=== PATIENT | female | born 1935 | race Caucasian/White ===

== ENCOUNTER → 2016-11-04 | Outpatient (CLI) | payer MEDICARE, OTHER ==
[~2016-11-04] MED LIST: ANTIVERT 12.512.5 MG PO; ASPIRIN 81M81 MG/TA2 PO; CALCIUM 600MG+D1 TAB PO; COLACE 100100 MG/CAP PO; DEBROX OT; FOSAMAX 10M10 MG/TAB PO; FOSAMAX 70MG TA70 MG PO; GLUCOSAMINE SU500 M2 PO; MULTI VITAMINS1 TAB PO; NATURAL POTASS595 MG PO; NATURE'S BLE1000 MCG PO; NITROSTAT0.3 MG SL; NORCO 325 MG-51 TAB PO; PRILOTC PO; SEPTRA DS 8001 TAB PO; SYNTHROID0.075 MG/T PO
== END ==
LOC: COL.VAS 12:15
DX: I08.0 Rheumatic disorders of both mitral and aortic valves (principal); I28.8 Other diseases of pulmonary vessels

== ENCOUNTER 2016-11-10 02:39 | Observation (INO) | payer MEDICARE, OTHER ==
[~2016-11-10] VITALS: Ht 157.5 cm; Wt 57.0 kg
[~2016-11-10 02:39] MED LIST changes: -ANTIVERT 12.512.5 MG PO; -DEBROX OT; -FOSAMAX 70MG TA70 MG PO; -NITROSTAT0.3 MG SL
[2016-11-10 03:26] LABS: BASO % 0.5 % (0.0-2.0); EOS # 0.1 (0.0-0.7); EOS % 1.7 % (0-4.0); GRAN # 4.3 (1.4-6.5); GRAN % 71.2 % (42.2-75.2); HEMOGLOBIN 12.2 g/dl (12.5-16.0); LYMPH % 17.4 % (20.0-51.0); MEAN CELL VOLUME 94 fl (80.0-100.0); MEAN CORPUSCULAR HEMOGLOBIN 31 pg (27.0-31.0); MEAN CORPUSCULAR HGB CONC 33 g/dl (33.0-37.0); MEAN PLATELET VOLUME 8.7 fl (7.4-10.4); MONO # 0.5 (0.1-0.6); MONO % 8.4 % (1.7-9.3); PLATELET COUNT 255 K/mm3 (130-400); RED BLOOD COUNT 3.88 M/mm3 (4.10-5.30); REDCELL DISTRIBUTION WIDTH-CV 12.8 % (11.5-14.5)
[2016-11-10 03:27] LABS: HEMATOCRIT 36.6 % (37.0-47.0)
[2016-11-10 03:36] LABS: ADJUSTED CALCIUM 8.8 mg/dL (8.4-10.2); ALANINE AMINOTRANSFERASE 27 U/L (9-52); ALBUMIN 4.2 gm/dL (3.5-5.0); ALKALINE PHOSPHATASE 60 U/L (50-136); ANION GAP 11 mmol/L (7-16); BILIRUBIN,TOTAL 0.7 mg/dL (0.0-1.0); BLOOD UREA NITROGEN 20 mg/dL (7-17); CARBON DIOXIDE 23 mmol/L (22-30); CHLORIDE 101 mmol/L (98-107); CREATININE, serum 0.75 mg/dL (0.52-1.25); GLUCOSE 109 mg/dL (74-106); POTASSIUM 4.1 mmol/L (3.4-5.0); SODIUM 134 mmol/L (137-145); TOTAL PROTEIN 7.5 gm/dL (6.4-8.2)
[2016-11-10] MEDS ORDERED: FOSAMAX 70MG TA70 MG PO (03:36)
[2016-11-10] MEDS ORDERED: NITROSTAT0.3 MG SL (03:37)
[2016-11-10 03:52] LABS: TROPONIN-I < 0.012 ng/mL (0.000-0.034)
[2016-11-10 06:25] VITALS: BP 141/77; PULSE 75; TEMP 97.8
[2016-11-10 08:32] VITALS: BP 141/77; PULSE 75; TEMP 97.8
[2016-11-10 10:50] VITALS: BP 115/60; PULSE 78; TEMP 98.1
[2016-11-10 15:07] VITALS: BP 127/71; PULSE 71; TEMP 98
[2016-11-10 20:52] VITALS: BP 106/62; PULSE 74; TEMP 98
[2016-11-11 00:42] VITALS: BP 115/58; PULSE 70; TEMP 97.8
[2016-11-11 05:00] VITALS: BP 122/66; PULSE 72; TEMP 98
[2016-11-11 07:40] VITALS: BP 107/56; PULSE 86; TEMP 98.6
[2016-11-11] MEDS ORDERED: DEBROX OT (09:04)
[2016-11-11] MEDS ORDERED: ANTIVERT 12.512.5 MG PO (09:23)
[2016-11-11 11:05] VITALS: BP 130/84; PULSE 80; TEMP 98.1
== END 2016-11-11 14:59 | disposition home or self-care (01) ==
LOC: COL.ER 02:39 → MEDICAL 05:51
PROVIDERS: Emergency Medicine
DX: H81.399 Other peripheral vertigo, unspecified ear (principal); I35.8 Other nonrheumatic aortic valve disorders; H61.21 Impacted cerumen, right ear; M81.0 Age-related osteoporosis without current pathological fracture; K22.4 Dyskinesia of esophagus; E03.9 Hypothyroidism, unspecified; I35.1 Nonrheumatic aortic (valve) insufficiency; Z90.721 Acquired absence of ovaries, unilateral; R42 Dizziness and giddiness
CPT/HCPCS: A9585; G0378; G8978-GP; G8979-GP; G8987-GO; G8988-GO; J1650; J2550; J7030

== ENCOUNTER → 2019-06-17 | Outpatient (CLI) | payer MEDICARE, OTHER ==
[~2019-06-17] MED LIST changes: +ANTIVERT 12.512.5 MG PO; +DEBROX OT; +FOSAMAX 70MG TA70 MG PO; +NITROSTAT0.3 MG SL
== END ==
LOC: COL.VAS 09:32
DX: I08.3 Combined rheumatic disorders of mitral, aortic and tricuspid valves (principal)

== ENCOUNTER 2019-07-11 16:52 | Inpatient (IN) | payer MEDICARE, OTHER ==
[2019-07-11] VITALS (111 sets, daily range): O2SAT 49–100
[~2019-07-11] VITALS: Ht 157.5 cm; Wt 67.6 kg
[2019-07-11 18:03] LABS: MEAN CELL VOLUME 87 fl (80.0-100.0); MEAN CORPUSCULAR HGB CONC 32 g/dl (33.0-37.0); MEAN PLATELET VOLUME 8.6 fl (7.4-10.4); PLATELET COUNT 422 K/mm3 (130-400); RED BLOOD COUNT 2.96 M/mm3 (4.10-5.30); REDCELL DISTRIBUTION WIDTH-CV 16.1 % (11.5-14.5)
[2019-07-11 18:06] LABS: HEMATOCRIT 25.7 % (37.0-47.0); HEMOGLOBIN 8.2 g/dl (12.5-16.0); MEAN CORPUSCULAR HEMOGLOBIN 28 pg (27.0-31.0)
[2019-07-11 18:08] LABS: PROTHROMBIN TIME 11.4 SECONDS (9.7-12.8)
[2019-07-11 18:15] LABS: ALANINE AMINOTRANSFERASE 41 U/L (9-52); ALBUMIN 2.4 gm/dL (3.5-5.0); ALKALINE PHOSPHATASE 111 U/L (50-136); ANION GAP 4 mmol/L (7-16); AST,SGOT 42 U/L (15-37); BILIRUBIN,TOTAL 0.3 mg/dL (0.0-1.0); BLOOD UREA NITROGEN 27 mg/dL (7-17); C-REACTIVE PROTEIN 2.5 mg/dL (0.0-0.9); CALCIUM 7.4 mg/dL (8.4-10.2); CARBON DIOXIDE 24 mmol/L (22-30); CHLORIDE 101 mmol/L (98-107); CREATININE, serum 0.67 (0.52-1.25); GLUCOSE 77 mg/dL (74-106); LIPASE 47 U/L (23-300); POTASSIUM 3.9 mmol/L (3.4-5.0); SODIUM 129 mmol/L (137-145); TOTAL PROTEIN 5.2 gm/dL (6.4-8.2)
[2019-07-11 18:25] LABS: TROPONIN-I < 0.012 ng/mL (0.000-0.035)
[2019-07-11 18:28] LABS: BAND 2 % (0-10); LYMPHOCYTE 4 % (20.0-51.0); METAMYELOCYTE 1 % (0-0); MYELOCYTE 1 % (0-0); NEUTROPHILS 88 % (42.0-75.2); PLATELET ESTIMATE INCREASED (NORMAL)
[2019-07-11 18:29] LABS: ANISOCYTOSIS 2+; HYPOCHROMIA 1+; POIKILOCYTOSIS 1+
[2019-07-11 18:30] LABS: TARGET CELLS 1+
[2019-07-11] MEDS ORDERED: CALCIUM CARBON650 M2 PO (18:53)
[2019-07-11 19:15] LABS: COLLECTION METHOD CLEAN CATCH
[2019-07-11 19:23] LABS: MUCOUS Present /lpf; PH 6 (5-8); SQUAMOUS EPITHELIAL 0-2 /hpf; URINE APPEARANCE Clear; URINE BACTERIA Rare /hpf; URINE BILIRUBIN Negative (NEGATIVE); URINE BLOOD Negative (NEGATIVE); URINE COLOR Yellow; URINE GLUCOSE Negative (NEGATIVE); URINE KETONE Negative (NEGATIVE); URINE LEUKOCYTE ESTERASE Negative (NEGATIVE); URINE NITRATE Negative (NEGATIVE); URINE PROTEIN(semi-quant) Negative (NEGATIVE); URINE RBC 0-2 /hpf; URINE UROBILINOGEN Negative (NEGATIVE)
--- NOTE | 2019-07-11 21:40 | NUR ---
PT arrived on unit accompanied by 2 SIEBEL ARCHITECT's who transferred the PT bed-to-bed. Then attached to cardiac montior where PT was noted to be hypotensive, provider notified. PT denies pain, only states that she is cold, blankets provided. [facility]
[2019-07-11] MEDS ORDERED: QUESTRAN4 GM/9 GM PO (21:59)
[2019-07-12] VITALS (1014 sets, daily range): BP systolic 70–109; BP diastolic 40–66; PULSE 69–87; TEMP 96.6–98.8; O2SAT 36–100
--- NOTE | 2019-07-12 | NUR ---
From [id number], central line was placed per provider order by Dr. Hartley. PT tolerated procedure well. CRM monitor viewed throughout the procedure with no changes. During the procedure, it was noted that the brown port was not getting blood return but flushed easily. Chest XRay ordered to verify placement, after this occured Dr. Hartley returned to the room to pull the central line catheter back 6cm as the distal tubing was in the right atrium. After doing so, the brown port was able to achieve blood return. The line was redressed using sterile procedure. After doing so, Dr. Hartley stated that the central line can be used.
[2019-07-12 01:35] LABS: TROPONIN-I 0.037 ng/mL (0.000-0.035)
[2019-07-12 05:15] LABS: BASO # 0.1 (0.0-0.2); BASO % 0.2 % (0.0-2.0); EOS % 0.1 % (0-4.0); GRAN # 24.2 (1.4-6.5); GRAN % 87.2 % (42.2-75.2); LYMPH # 0.7 (1.2-3.4); LYMPH % 2.6 % (20.0-51.0); MEAN CELL VOLUME 86 fl (80.0-100.0); MEAN CORPUSCULAR HGB CONC 32 g/dl (33.0-37.0); MEAN PLATELET VOLUME 8.7 fl (7.4-10.4); MONO # 2.4 (0.1-0.6); MONO % 8.6 % (1.7-9.3); RED BLOOD COUNT 3.12 M/mm3 (4.10-5.30); REDCELL DISTRIBUTION WIDTH-CV 16.2 % (11.5-14.5)
[2019-07-12 05:24] LABS: HEMATOCRIT 26.9 % (37.0-47.0); HEMOGLOBIN 8.6 g/dl (12.5-16.0); MEAN CORPUSCULAR HEMOGLOBIN 28 pg (27.0-31.0); PLATELET COUNT 556 K/mm3 (130-400)
[2019-07-12 05:25] LABS: INR 1.1 (0.8-3.0); PROTHROMBIN TIME 12.3 SECONDS (9.7-12.8)
[2019-07-12 05:26] LABS: ALBUMIN 1.9 gm/dL (3.5-5.0); BILIRUBIN,TOTAL 0.3 mg/dL (0.0-1.0); CALCIUM 6.2 mg/dL (8.4-10.2); CREATININE, serum 0.47 (0.52-1.25); POTASSIUM 3.4 mmol/L (3.4-5.0); TOTAL PROTEIN 4.4 gm/dL (6.4-8.2)
--- NOTE | 2019-07-12 07:20 | NUR ---
Bedside report recieved from ELAINE Hunter at this time. Care assumed.
--- NOTE | 2019-07-12 09:49 | NUR ---
Dr. Shannon rounds at this time. Orders as entered CPOE.
--- NOTE | 2019-07-12 10:50 | NUR ---
Dr. Hartley rounds at this time. Orders as entered CPOE.
[2019-07-12 11:05] LABS: ARTERIAL BLD GAS O2 SATURATION 94.2 % (92-100); ARTERIAL BLD GAS TCO2 CT 16.6; ARTERIAL BLOOD GAS BASE EXCESS -9.1 (-2-2); ARTERIAL BLOOD GAS HCO3 15.7 meq/L (22-26); ARTERIAL BLOOD GAS PCO2 30.1 mmHg (35-45); ARTERIAL BLOOD GAS PO2 76.2 mmHg (80-100); ARTERIAL BLOOD GAS pH 7.34 (7.35-7.45)
--- NOTE | 2019-07-12 13:35 | NUR ---
Vancomycin Initial Dosing Pharmacy Note Ordering provider: Rudi Menjivar MD Indication/duration: sepsis/colitis/elevated WBC (27.7<-18.1) LABS: SCr 0.47, CrCl~35, GFR 126 Recommendation: Will start Vancomycin 1 gm IV q24h. Pharmacy will continue to monitor and check a Vancomycin trough on 07/15/19. Maintenance dose: 1 gram every 24 hours Trough goal: 15-20 ug/mL
--- NOTE | 2019-07-12 14:39 | NUR ---
CAR SUPERVISOR student met with the patient to complete initial intake. The patient lives alone in [place]. The patient has a cane and a walker. The patient's PCP is Dr. Deras and receives medications from [facility] with no difficulites. The patient does not have advanced directives in the EMR. The patient's daughter is to bring the DPOA-HC for the patient. PT/OT have been ordered for the patient. director of medical staff services will continue to follow to ensure a safe discharge.
--- NOTE | 2019-07-12 19:25 | NUR ---
RECEIVED REPORT FROM ELAINE HENRIQUEZ. PT SITTING UP IN BED TALKING TO FAMILY AT BEDSIDE. SEE GTT TITRATIONS. VSS. CALL LIGHT WITHIN REACH. FC PATENT AND DRAINING TO GRAVITY.
--- NOTE | 2019-07-12 19:36 | NUR ---
Bedside report provided to ELAINE Stewart.
[2019-07-13] VITALS (719 sets, daily range): BP systolic 83–105; BP diastolic 46–69; PULSE 74–100; TEMP 97.5–98.2; O2SAT 81–100
--- NOTE | 2019-07-13 | NUR ---
DISCUSSED WITH SCOTTY POOL AND LAB ABOUT GASTO PANEL RESULTS. SCOTTY POOL STATES NO CHANGES FOR POC AT THIS TIME. PT NOT CONTINUOUSLY GAVING LOOSE STOOLS. ONLY ONE VERY SMALL BM SINCE ADMIT.
[2019-07-13 04:51] LABS: MEAN CELL VOLUME 86 fl (80.0-100.0); MEAN CORPUSCULAR HGB CONC 32 g/dl (33.0-37.0); MEAN PLATELET VOLUME 8.7 fl (7.4-10.4); PLATELET COUNT 463 K/mm3 (130-400); RED BLOOD COUNT 2.94 M/mm3 (4.10-5.30); REDCELL DISTRIBUTION WIDTH-CV 16.6 % (11.5-14.5)
[2019-07-13 04:52] LABS: HEMATOCRIT 25.4 % (37.0-47.0); MEAN CORPUSCULAR HEMOGLOBIN 27 pg (27.0-31.0)
--- NOTE | 2019-07-13 05:05 | NUR ---
NOTIFIED SCOTTY POOL OF PT'S HGB THIS AM, NO NEW ORDERS. WILL CONTINUE TO MONITOR CLOSELY FOR ANY POTENTIAL S/S RELATED TO.
[2019-07-13 05:06] LABS: ALANINE AMINOTRANSFERASE 40 U/L (9-52); ALBUMIN 1.9 gm/dL (3.5-5.0); ALKALINE PHOSPHATASE 101 U/L (50-136); ANION GAP 5 mmol/L (7-16); AST,SGOT 21 U/L (15-37); BILIRUBIN,TOTAL < 0.1 mg/dL (0.0-1.0); BLOOD UREA NITROGEN 17 mg/dL (7-17); CALCIUM 6.4 mg/dL (8.4-10.2); CARBON DIOXIDE 19 mmol/L (22-30); CHLORIDE 108 mmol/L (98-107); CREATININE, serum 0.62 (0.52-1.25); GLUCOSE 190 mg/dL (74-106); MAGNESIUM 1.6 mg/dL (1.6-2.3); POTASSIUM 4.3 mmol/L (3.4-5.0); SODIUM 131 mmol/L (137-145); TOTAL PROTEIN 4.4 gm/dL (6.4-8.2)
[2019-07-13 05:44] LABS: ANISOCYTOSIS 1+; BAND 4 % (0-10); LYMPHOCYTE 1 % (20.0-51.0); NEUTROPHILS 95 % (42.0-75.2); PLATELET ESTIMATE INCREASED (NORMAL)
[2019-07-13 05:45] LABS: PROTHROMBIN TIME 12.2 SECONDS (9.7-12.8)
--- NOTE | 2019-07-13 13:00 | NUR ---
REPORT RECEIVED FROM ELAINE BARON. PATIENT RESTING COMFORTABLY IN BED.
--- NOTE | 2019-07-13 14:17 | NUR ---
Pt and family wanted to discuss code status and pt voiced "I want to do everything to keep me alive." Family was in agreement with pt wishes. Informed Analisa HERNY.
--- NOTE | 2019-07-13 15:49 | NUR ---
The patient's daughter brought in DPOA- paperwork and was placed in the patient's chart. The DPOA-HC is the patient's daughter, Sarah Anthony . social services director will continue to follow.
--- NOTE | 2019-07-13 19:20 | NUR ---
RECEIVED REPORT FROM ELAINE HAJI. PT SITTING UP IN BED TALKING TO S/O AT BEDSIDE. VSS. CALL LIGHT WITHIN REACH. FC PATENT AND DRAINING TO GRAVITY. SEE GTT TITRATIONS. PT ON RA.
--- NOTE | 2019-07-13 19:40 | NUR ---
REPORT GIVEN TO ELAINE GRULLON. PATIENT HAS NO COMPLAINTS AT THIS TIME.
[2019-07-14] VITALS (661 sets, daily range): BP systolic 82–98; BP diastolic 42–77; PULSE 42–98; TEMP 97.2–98; O2SAT 67–100
[2019-07-14 05:22] LABS: MEAN CELL VOLUME 86 fl (80.0-100.0); MEAN CORPUSCULAR HGB CONC 31 g/dl (33.0-37.0); MEAN PLATELET VOLUME 8.8 fl (7.4-10.4); RED BLOOD COUNT 2.65 M/mm3 (4.10-5.30); REDCELL DISTRIBUTION WIDTH-CV 17.2 % (11.5-14.5)
[2019-07-14 05:29] LABS: HEMATOCRIT 22.8 % (37.0-47.0); HEMOGLOBIN 7.1 g/dl (12.5-16.0); MEAN CORPUSCULAR HEMOGLOBIN 27 pg (27.0-31.0); PLATELET COUNT 341 K/mm3 (130-400); PROTHROMBIN TIME 11.4 SECONDS (9.7-12.8)
[2019-07-14 05:30] LABS: ALBUMIN 1.9 gm/dL (3.5-5.0); BILIRUBIN,TOTAL 0.1 mg/dL (0.0-1.0); CALCIUM 6.4 mg/dL (8.4-10.2); CREATININE, serum 0.56 (0.52-1.25); POTASSIUM 4.1 mmol/L (3.4-5.0); TOTAL PROTEIN 4.1 gm/dL (6.4-8.2)
--- NOTE | 2019-07-14 05:46 | NUR ---
NOTIFIED SCOTTY POOL OF HGB 7.1, STATES TO CONTINUE TO WATCH. PT OFF LEVOPHED AT THIS TIME, VSS, NOT ACTIVE S/S OF BLEEDING NOTED.
[2019-07-14 05:59] LABS: BAND 7 % (0-10); LYMPHOCYTE 4 % (20.0-51.0); NEUTROPHILS 84 % (42.0-75.2)
--- NOTE | 2019-07-14 13:22 | NUR ---
REPORT CALLED TO ELAINE KILLIAN
--- NOTE | 2019-07-14 13:33 | NUR ---
The patient transferred to medical floor this day. technical services analyst will continue to follow.
--- NOTE | 2019-07-14 14:00 | NUR ---
Patient to room 357 by wheelchair from ICU. Patient ambulated 1xassist with PT. Nurse oriented patient to room, call light and bed. Patient verbalized an understanding. VSS. IV CDI. No further needs expressed from patient. Call light within reach. Bed alarm on
--- NOTE | 2019-07-14 16:08 | NUR ---
Transfusion started. VS monitored. VSS. IV CDI. Patient tolerating well. No further needs expressed from patient. Nurse at the bedside. Call light carolyn cabrera
--- NOTE | 2019-07-14 17:47 | NUR ---
Blood transfusing, patient tolerating well. VS being monitored. VSS. IV CDI, fluids infusing. Abdalla to dependent drainage, clear, tea colored. Denies pain and discomfort. RICHY hose BLE. SCD BLE. No further needs expressed from patient. Call light within reach. Bed alarm on.
--- NOTE | 2019-07-14 18:18 | NUR ---
Transfusion complete. Patient tolerated well. VSS. IV CDI. Abdalla removed, balloon intact. Amie care provided before and after removal. 10ml removed from balloon. Patient repositioned for comfort. No further needs expressed from patient. Call light within reach. Bed alarm on
--- NOTE | 2019-07-14 20:00 | NUR ---
Recieved report from ELAINE Vitale. Assessment complete. Alert and oriented. at bedside. Denies any pain or discomfort. Denies SOB. Having loose, liquid stools, sample was collected. Assisted pt to BSC using walker. Fluids infusing to RIJ line, intact, lines flushed, dressing CDI. Meds adminsitered. needs met. Call light within reach.
[2019-07-15] VITALS (7 sets, daily range): BP systolic 91–125; BP diastolic 53–81; PULSE 65–95; TEMP 97.4–98
--- NOTE | 2019-07-15 05:25 | NUR ---
Assisted pt to BSC with walker few times throughout the night. No complaints made. Meds administered. Needs met. Call light within reach.
--- NOTE | 2019-07-15 07:15 | NUR ---
Report given to ELAINE Hills and ELAINE Stewart.
[2019-07-15 07:28] LABS: CALCIUM 6.7 mg/dL (8.4-10.2); CREATININE, serum 0.49 (0.52-1.25); POTASSIUM 3.7 mmol/L (3.4-5.0)
[2019-07-15 08:40] LABS: MEAN CELL VOLUME 88 fl (80.0-100.0); MEAN CORPUSCULAR HGB CONC 31 g/dl (33.0-37.0); MEAN PLATELET VOLUME 9.1 fl (7.4-10.4); PLATELET COUNT 315 K/mm3 (130-400); RED BLOOD COUNT 3.33 M/mm3 (4.10-5.30); REDCELL DISTRIBUTION WIDTH-CV 17.3 % (11.5-14.5)
[2019-07-15 08:44] LABS: HEMATOCRIT 29.3 % (37.0-47.0); HEMOGLOBIN 9.2 g/dl (12.5-16.0); MEAN CORPUSCULAR HEMOGLOBIN 28 pg (27.0-31.0)
[2019-07-15 08:59] LABS: BAND 4 % (0-10); LYMPHOCYTE 4 % (20.0-51.0); NEUTROPHILS 91 % (42.0-75.2); PLATELET ESTIMATE NORMAL (NORMAL)
[2019-07-15 09:00] LABS: SCHISTOCYTES 1+
--- NOTE | 2019-07-15 09:39 | NUR ---
SHIFT REPORT RECEIVED FROM NET COORDINATOR RN. CLINTON. PT AWAKE AND RESTING IN BED, AT BEDSIDE. PT DOES NOT COMPLAIN OF PAIN OR N/V. PT SWALLOWS ORAL MEDICATIONS WITHOUT ISSUES, ONE AT A TIME. BREAKFAST TRAY SET UP. ISOLATION AND CDIFF EDUCATION PROVIDED TO PT AND FAMILY. NO OTHER CONCERNS NOTED AT THIS TIME.
--- NOTE | 2019-07-15 13:38 | NUR ---
PT is incontinent of stool in brief, calls this RN in for help. Transferred to BSC where PT outputs 300 ml of mixed void and liquid stool. Amie care provided and brief changed.
--- NOTE | 2019-07-15 14:33 | NUR ---
ANNETTE met with the patient and her partner, Kwadwo, to review discharge plan and to discuss PT's recommendation of home with partner and possible home health and OT's recommendation of post-acute rehab. The patient reports that she does not feel like she can return home at this time and would be interested in post-acute rehab. ANNETTE provided the patient with [employer] list of SNF's in the [facility] and presented and explained the Patient Choice Form. The patient chose 1) [facility] 2) [facility]. Patient Choice Form signed by the patient and she was provided a copy. ANNETTE consulted IPR Director, Niharika. ANNETTE contacted and faxed a referral to Barry at [facility]. The patient may tentatively be able to discharge this weekend. ANNETTE notified both [facility] and [facility]. SW awaiting their screens.
--- NOTE | 2019-07-15 15:33 | NUR ---
Niharika, IPR Director, reports that they are able to accept the patient. SW will need to notify Niharika when and if able to discharge this weekend. SW to continue to follow.
--- NOTE | 2019-07-15 18:36 | NUR ---
Patient has not complained of pain or discomfort all day. Patient plans to transfer to inpatient rehab tomorrow. Patient still shows significant edema in lower extremities bilaterally, but edema has improved from this morning. Patient started on IV lasix today to help with edema and central line was d/c at 1800. Patient's daughter and partner currently at bedside while patient eats dinner.
--- NOTE | 2019-07-15 18:56 | NUR ---
Recieved report from ELAINE Stewart.
--- NOTE | 2019-07-15 20:00 | NUR ---
Assessment complete. Alert and oriented. Family at bedside. Denies any pain or discomfort at this time. meds administered. Assisted pt to BSC with walker and gait belt. Still having loose, liquid stools. Dressing to rt neck intact with scant bloody drainage from removal or RIJ central line. INT to LFA intact, flushed,dressing CDI. Foam dressing changed to mid/upper back to small ulcer, no drainage, pink center. Needs attended too. Call light within reach.
[2019-07-16 02:57] VITALS: BP 109/82; PULSE 79; TEMP 97.2
--- NOTE | 2019-07-16 06:18 | NUR ---
Assisted pt x2 to BSC throughout the night. No complaints of pain or discomfort. Needs met. meds administered. Call light within reach.
[2019-07-16 06:24] LABS: MEAN CELL VOLUME 89 fl (80.0-100.0); MEAN CORPUSCULAR HGB CONC 31 g/dl (33.0-37.0); MEAN PLATELET VOLUME 8.6 fl (7.4-10.4); PLATELET COUNT 315 K/mm3 (130-400); RED BLOOD COUNT 3.43 M/mm3 (4.10-5.30); REDCELL DISTRIBUTION WIDTH-CV 18.1 % (11.5-14.5)
[2019-07-16 06:34] LABS: CREATININE, serum 0.46 (0.52-1.25); MAGNESIUM 2.1 mg/dL (1.6-2.3); POTASSIUM 3.8 mmol/L (3.4-5.0)
[2019-07-16 06:43] LABS: HEMATOCRIT 30.6 % (37.0-47.0); HEMOGLOBIN 9.6 g/dl (12.5-16.0); MEAN CORPUSCULAR HEMOGLOBIN 28 pg (27.0-31.0)
--- NOTE | 2019-07-16 06:46 | NUR ---
Report given to ELAINE Pathak.
[2019-07-16 08:35] VITALS: BP 123/59; PULSE 89; TEMP 97.6
[2019-07-16 09:41] LABS: ANISOCYTOSIS 3+; BAND 1 % (0-10); EOSINOPHIL 1 % (0-4); LYMPHOCYTE 1 % (20.0-51.0); NEUTROPHILS 93 % (42.0-75.2); PLATELET ESTIMATE NORMAL (NORMAL)
[2019-07-16 12:30] VITALS: BP 91/47; BP 91/75; PULSE 90; TEMP 97.5
--- NOTE | 2019-07-16 13:11 | NUR ---
ANNETTE notified Shirley MARQUEZ, no dc today. WIll check in tommorrow.
[2019-07-16 16:30] VITALS: BP 80/41; PULSE 88; TEMP 97.4
--- NOTE | 2019-07-16 17:42 | NUR ---
PT HAD 3 STOOLS THIS SHIFT. THEY STARTED SOLIDIFIING BUT STILL RATHER SOFT. BMS ARE SLIGHTLY BLOOD TINGED. HAS URNINATED AT THE SAME TIME AND WAS UNABLE TO MEASURE URINE OUTPUT DUE TO STOOL AND URINE MIXED. WAS APPROX 300CC OF URINE X3. NO ISSUES OR CONSERNS VOICED THIS SHIFT.
[2019-07-16 20:17] VITALS: BP 92/59; PULSE 95; TEMP 97.3
--- NOTE | 2019-07-16 20:25 | NUR ---
Received report from ELAINE Pathak. Assessment complete. Family at bedside. Alert and oriented. Denies any pain or discomfort at this time. Meds administered. Assisted pt to BSC using walker and gait belt. Positive urine output with small amount of loose, formed stools, browm in color. Foam dressing in place to mid upper back. SCD in place to BLE. INT to LFA intact, flushed, dressing CDI. Needs met. Call light within reach. Contact precautions remains in place.
[2019-07-16 23:59] VITALS: BP 115/59; PULSE 88; TEMP 97.6
--- NOTE | 2019-07-17 00:44 | NUR ---
Assisted pt to BSC using walker and gait belt. Postive urine output with small amount of dark brown bloody tinged loose stool. Pt SpO2 85-86% on RA, denies SOB. Placed on 2LO2NC, SpO2 94%. RT notified. INT to LFA leaking, denies any pain, DC'd. Started new 20G IV to lower LFA with blood return, flushed, dressing place CDI. Scheduled antibiotic infusing. Will monitor pt. Needs met. Call light within reach. SCD in place to BLE.
[2019-07-17 04:06] VITALS: BP 129/87; PULSE 97; TEMP 97.3
--- NOTE | 2019-07-17 06:12 | NUR ---
Pt made no complaints during this shift. Needs met. Dressing to RT neck from RIJ central line removed, bandaid in place, no s/s of infection. Meds administered. Pt asked to be taken off oxygen. Denies SOB. SpO2 at RA 94%. Oxygen removed and pt is on RA. RT notified. Call light within reach.
[2019-07-17 06:38] LABS: MEAN CELL VOLUME 90 fl (80.0-100.0); MEAN CORPUSCULAR HGB CONC 31 g/dl (33.0-37.0); PLATELET COUNT 288 K/mm3 (130-400); RED BLOOD COUNT 3.16 M/mm3 (4.10-5.30); REDCELL DISTRIBUTION WIDTH-CV 18.2 % (11.5-14.5)
[2019-07-17 06:41] LABS: HEMATOCRIT 28.5 % (37.0-47.0); HEMOGLOBIN 8.9 g/dl (12.5-16.0); MEAN CORPUSCULAR HEMOGLOBIN 28 pg (27.0-31.0)
--- NOTE | 2019-07-17 06:41 | NUR ---
Report given to ELAINE Pathak.
[2019-07-17 06:53] LABS: CALCIUM 7.5 mg/dL (8.4-10.2); CREATININE, serum 0.46 (0.52-1.25); POTASSIUM 3.9 mmol/L (3.4-5.0)
[2019-07-17 07:26] VITALS: BP 96/54; PULSE 66; TEMP 97.7
[2019-07-17 07:50] LABS: BAND 9 % (0-10); EOSINOPHIL 1 % (0-4); LYMPHOCYTE 7 % (20.0-51.0); MYELOCYTE 1 % (0-0); NEUTROPHILS 78 % (42.0-75.2)
[2019-07-17 07:51] LABS: HYPOCHROMIA 2+
[2019-07-17 07:53] LABS: ANISOCYTOSIS 1+; PLATELET ESTIMATE NORMAL (NORMAL)
--- NOTE | 2019-07-17 11:17 | NUR ---
Per Dr. Fournier patient is able to go to Inpatient Rehabilitation this day so group social worker contacted Shirley ([phone]) and informed her of patient's ability to go to IPR this day which she accepted and stated she will be in to complete patient's paperwork. drug worker informed patient's nurse Zo of IPR status updates.
[2019-07-17] MEDS ORDERED: PROTONIX 40MG T40 MG PO (11:20)
[2019-07-17] MEDS ORDERED: ZOFRAN INJ4 MG/2 ML IV (11:20)
[2019-07-17] MEDS ORDERED: LASIX 40MG40 MG/4 ML IV (11:20)
[2019-07-17 13:35] VITALS: BP 85/47; PULSE 103; TEMP 97.5
--- NOTE | 2019-07-17 14:07 | NUR ---
PT HAD UNEVENTFUL DAY, AWAITING IPR TRANSFER. HAS NOTED DECREASE IN SWELLING THIS SHIFT, ESPECIALLY IN RT ARM COMPAIRED TO YESTERDAY. STOOLS MORE FORMED BUT STILL SOME WHAT LOOSE, LESS FREQUENT.
[2019-07-17] MEDS ORDERED: LASIX 40MG TABL40 MG PO (16:14)
--- NOTE | 2019-07-17 16:48 | NUR ---
REPORT CALLED TO RN ON IPR. PTS BELONGINGS MOVED OVER. PT USING COMMODE. IV REMOVED WITHOUT ISSUES AND IV MEDS CHANGED TO PO. WILL TRANSPORT PT VIA W/C UPON FINISHING USING COMMODE. AT BEDSIDE.
[2019-07-17] MEDS ORDERED: ZOFRAN 4MG T4 MG/TAB PO (21:46)
== END 2019-07-17 17:00 | DRG 871 ==
LOC: COL.ER 16:52 → ICU 19:49 → MEDICAL 19:49 → ICU 20:58 → MEDICAL 07-14 13:25
PROVIDERS: Emergency Medicine; Family Medicine; Internal Medicine Pulmonary Disease; Nurse Practitioner Family; Physician Assistant; ADMIT Internal Medicine
PROC: 02H633Z Insertion of Infusion Device into Right Atrium, Percutaneous Approach (ICD-10-PCS; principal; 2019-07-12)
DX: A41.9 Sepsis, unspecified organism (principal); R65.21 Severe sepsis with septic shock; J18.9 Pneumonia, unspecified organism; I21.A1 Myocardial infarction type 2; E87.1 Hypo-osmolality and hyponatremia; J90 Pleural effusion, not elsewhere classified; E44.0 Moderate protein-calorie malnutrition; E83.51 Hypocalcemia; R53.81 Other malaise; R91.1 Solitary pulmonary nodule; K52.9 Noninfective gastroenteritis and colitis, unspecified; M81.0 Age-related osteoporosis without current pathological fracture; E03.9 Hypothyroidism, unspecified; D64.9 Anemia, unspecified; Z90.710 Acquired absence of both cervix and uterus; Z90.89 Acquired absence of other organs; Z90.721 Acquired absence of ovaries, unilateral; Z68.27 Body mass index [BMI] 27.0-27.9, adult
CPT/HCPCS: 99233-AI; 99239; A4216; C9113; J0610; J0692; J1720; J1940; J2185; J3370; J3475; J3480; J7030; J7050; J7060; J7120; P9016; Q9967

== ENCOUNTER 2019-07-17 13:21 | Inpatient (IN) | payer MEDICARE, OTHER ==
[~2019-07-17] VITALS: Ht 157.5 cm; Wt 59.9 kg
[~2019-07-17 13:21] MED LIST changes: +CALCIUM CARBON650 M2 PO; +LASIX 40MG40 MG/4 ML IV; +PROTONIX 40MG T40 MG PO; +QUESTRAN4 GM/9 GM PO; +ZOFRAN INJ4 MG/2 ML IV
[2019-07-17] MEDS ORDERED: LASIX 40MG TABL40 MG PO (16:14)
[2019-07-17 18:52] VITALS: BP 91/56; PULSE 79; TEMP 97.5
--- NOTE | 2019-07-17 21:27 | NUR ---
Report to ELAINE Mcmahon. Pt arrived from medical unit with male visitor. On isolation for C. diff. Pt assisted with toileting per BSC. Changed mepilex dressing to upper spine: blanchable redened area 2-3 cm, and stage II shallow open area approximately 0.5 x 2 cm with minimal drainage, pale wound bed.
[2019-07-17] MEDS ORDERED: ZOFRAN 4MG T4 MG/TAB PO (21:46)
--- NOTE | 2019-07-18 03:45 | NUR ---
PT C/O BACK PAIN LEVEL 7/10. SEE MAR FOR TYENOL GIVEN. AIR MATTRESS PALCED ON BED. PT ASSISTED TO BR WITH WALKER. NEEDS CUING FOR SAFETY. PT HAD SMALL LOOSE STOOL SMAEAR IN BRIEFS. HAD #3 SMALL LOOSE RED BROWN COLORED STOOL THIS SHIFT. BACK TO BED. BED FEELS MUCH BETTER NOW. SEE MAR FOR TYLENOL GIVEN. .
[2019-07-18 04:31] VITALS: BP 96/46; PULSE 91; TEMP 97.5
--- NOTE | 2019-07-18 05:08 | NUR ---
SHIFT SUMMARY: PT HAS HAD A TOTAL OF X3 LOOSE REDDISH PINK BROWN STOOLS. GAVE TYLENOL X1 FOR BACK PAIN. PT RESTING WELL NOW. REFUSED FURTHER SCD USE AT 0330.
--- NOTE | 2019-07-18 07:23 | NUR ---
SHIFT REPORT GIVEN TO FLOYD Alvarez RN. PT RESTING WELL. NO FURTHER C/O BACK PAIN.
[2019-07-18 09:35] VITALS: BP 76/48; PULSE 102; TEMP 98
--- NOTE | 2019-07-18 09:38 | NUR ---
Patient taking a shower at this time with OT. Observed stage I and stage II ulcers to upper back over bony prominences. Patient reports having pain to her upper back last night. Night nurse put an air matress on her bed, with good effect. Rechecked patient's low blood pressure following her lasix this morning. Will report to Dr. Chawla.
[2019-07-18 11:10] VITALS: BP 90/42; PULSE 100
--- NOTE | 2019-07-18 11:29 | NUR ---
Spoke with Dr. Chawla and he recommended that her blood pressure be rechecked an hour from her last BP. This was rechecked and the new result of 90/[address] Chawla with no new orders given at this time. Will continue to monitor.
--- NOTE | 2019-07-18 14:38 | NUR ---
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 This means that once patient has no diarrhea for 48 hours she can then be taken off isolation precautions.
--- NOTE | 2019-07-18 14:51 | NUR ---
Parking Patroller met with patient to complete initial intake as patient is new to [facility]. Patient lives alone in [place] and has a partner named Kwadwo (ph#[phone]). Patient sees Dr. Deras for primary care and obtains medications from [facility] with no difficulties. Patient uses a cane for balance as needed and no other DME. Patient reports independence with ADLS prior to being admitted. Patient's DPOA-HC is her daughter Alexandra (ph#[phone]). SW to continue to follow to monitor for discharge needs.
[2019-07-18 16:53] VITALS: BP 94/56; PULSE 89; TEMP 98.2
--- NOTE | 2019-07-18 20:22 | NUR ---
Patient's stopped by this evening and is currently sitting by patient's side. Patient reported that she felt her pain was under control at this time, but that she may want some Tylenol prior to bed time. This was communicated to the night nurse.
--- NOTE | 2019-07-18 21:00 | NUR ---
Patient up min assist with walker to the bathroom. Incontinent of small amount loose brown bm and nurse assists to change pullup and remove/apply pants. PRESCHOOL SUBSTITUTE TEACHER assists patient back to bed. HS med along with 1 tylenol per patient request reviewed and given. Rendon compression stockings removed and SCDs applied, heels floated. Male visitor in room visiting and left at this time.
--- NOTE | 2019-07-18 23:30 | NUR ---
Patient rests with eyes closed. Respirations with ease.
--- NOTE | 2019-07-19 02:16 | NUR ---
Patient has been resting with eyes closed. Respirations with ease.
[2019-07-19 02:50] VITALS: BP 123/81; PULSE 88; TEMP 97.7
--- NOTE | 2019-07-19 06:16 | NUR ---
Patient resting with eyes closed on left side. Awakened for am meds and returns to resting.
[2019-07-19 07:28] LABS: CALCIUM 7.7 mg/dL (8.4-10.2); CREATININE, serum 0.42 (0.52-1.25); POTASSIUM 4.4 mmol/L (3.4-5.0)
[2019-07-19 08:12] LABS: BASO % 0.1 % (0.0-2.0); EOS # 0.2 (0.0-0.7); EOS % 1.1 % (0-4.0); GRAN # 11.3 (1.4-6.5); GRAN % 84.3 % (42.2-75.2); HEMOGLOBIN 10.1 g/dl (12.5-16.0); LYMPH # 0.8 (1.2-3.4); LYMPH % 6.2 % (20.0-51.0); MEAN CELL VOLUME 91 fl (80.0-100.0); MEAN CORPUSCULAR HEMOGLOBIN 28 pg (27.0-31.0); MEAN CORPUSCULAR HGB CONC 31 g/dl (33.0-37.0); MONO # 0.9 (0.1-0.6); MONO % 6.6 % (1.7-9.3); PLATELET COUNT 272 K/mm3 (130-400); RED BLOOD COUNT 3.57 M/mm3 (4.10-5.30); REDCELL DISTRIBUTION WIDTH-CV 19.2 % (11.5-14.5)
[2019-07-19 08:26] LABS: HEMATOCRIT 32.3 % (37.0-47.0)
[2019-07-19 16:01] VITALS: BP 99/52; PULSE 98; TEMP 98.1
--- NOTE | 2019-07-19 19:16 | NUR ---
Report to Najma RN at doorway, pt on C. diff isolation, sig O Kwadwo and granddaughter visiting. Pt in chair with alarm on, call lt in reach, legs up in chair. Glasses in place.
--- NOTE | 2019-07-19 21:30 | NUR ---
Patient has been resting in bed. Significant other in visiting. Patient awakened for med/reviewed and given in OJ. Denies pain or needs at this time. SCD's on. Heels floated.
--- NOTE | 2019-07-20 03:00 | NUR ---
Patient continues resting with eyes closed. Respirations with ease.
[2019-07-20 05:28] VITALS: BP 102/59; PULSE 92; TEMP 98.3
--- NOTE | 2019-07-20 11:22 | NUR ---
Patient attended all therapies today, denied any pain and is tolerating diet well this shift. Patient was measured for knee high rafat hose and seems to like the one we have over the ones that she brought. Patient was able to receive her lasix this morning since SBP was over 90. She was given Tylenol to help with any aching that may occur with PT this morning. Will continue to monitor.
--- NOTE | 2019-07-20 14:09 | NUR ---
Skin assessment completed and thoracic area has a non-blanchable small reddened area that is a Stage I. Below that is a Stage II open area with some yellow drainage observed on bandage. Coccyx is reddened and blanchable. Heels are slightly reddened and blanchable. Left great toe is reddened and blanchable. Patient has an air mattress on her bed and has a mepilex on her thoracic area to prevent any further pressure issues.
--- NOTE | 2019-07-20 16:22 | NUR ---
Aircraft Maintenance Instructor met with patient and Kwadwo to review and provide copy of team conference notes. SW spoke with patient about recommendations for grab bars, shower seat, and shower head to be installed in her bathroom. Patient reports she is working on this with her family. SW advised that family meeting will likely be scheduled for Thursday afternoon, time pending. Patient reports her daughter, Alexandra has a flexible work schedule and can be there. ANNETTE contacted Alexandra who advised Thursday will likely work for her. Alexandra stated she would notify her other sister in town as soon as time is set for meeting. Alexandra reports she will be there for sure, but her sister may not be able to attend. Alexandra reports she will be out of town on next so if that is the date of discharge, she will need to make arrangements as needed to support patient. SW to continue to follow.
[2019-07-20 17:14] VITALS: BP 90/50; PULSE 99; TEMP 98.3
--- NOTE | 2019-07-20 19:47 | NUR ---
Patient resting in bed with call light in reach and bed alarm set. Patient's family stopped by to visit today. by her side at this time.
--- NOTE | 2019-07-20 20:00 | NUR ---
SHIFT REPORT REC'D BY Leann ELMORE RN. PT REMAINS IN ISOLATION UNTIL ROOM CAN BE TERMINALLY CLEANED. REVIEWED PLAN WITH PT. PT AGREEABLE. WILL REMAIN IN ISOLATION UNTIL SHE GOES TO THERAPY TOMORROW AND HOUSE KEEPING CAN CLEAN ROOM. ASSISTED TO BR W/WALKER. SBA ONLY NEEDED. WEARS BRIEFS FOR STRESS INCONTINENCE. NOTICED SMALL BLISTER MEDIAL LUMBAR AREA. MARKED WITH PEN. WILL CONTINUE TO WATCH. BACK TO BED. NEEDED ASSIT LIFTING LEGS INTO BED. CALL LIGTH IN REACH. BED ALARM SET. FRIEND AT BEDSIDE. VERY SUPPORTIVE.
[2019-07-21 05:07] VITALS: BP 97/53; PULSE 78
--- NOTE | 2019-07-21 05:27 | NUR ---
PT AWAKE. PT RELATES UNABLE TO GET WARM. HAS SEVERAL BLANKETS ON NOW. AFEBRILE. BP STILL LOW AT 97/53. DENIES OTHER NEEDS. UNEVENTFUL NIGHT.
--- NOTE | 2019-07-21 09:46 | NUR ---
Housekeeping doing a terminal clean of pt's room in order to take pt off C. diff isolation precautions.
--- NOTE | 2019-07-21 10:40 | NUR ---
Pt on C. diff isolation at shift change, report from ELAINE Mcmahon. Pt A&O, takes pills a few at a time without difficulty. Pt c/o toe hurting and wanted tylenol. Independent with opening food containers for breakfast.
--- NOTE | 2019-07-21 12:32 | NUR ---
Initial visit; Patient thanked Digester Operator Helper for looking in on her and offering spiritual care.
[2019-07-21 15:28] VITALS: BP 101/47; PULSE 95; TEMP 97.7
--- NOTE | 2019-07-21 17:36 | NUR ---
Pt's Sig O Kwadwo visiting, pt ate 100% supper, toileted, had SCDs to BLE while in chair.
--- NOTE | 2019-07-21 18:30 | NUR ---
Pt toileted, returned to bed, SCDs to BLE, legs elevated on pillow, yellow grippers in place, bed alarm on, call lt in reach.
--- NOTE | 2019-07-21 20:00 | NUR ---
SHIFT REPORT REC'D FROM ISHAAN Martinez RN. EARLIER. PT IN GOOD SPIRITS. ISOLATION DC'D. FRIEND AT BEDSIDE. VERY SUPPORTIVE. NO NEEDS AT THIS TIME.
--- NOTE | 2019-07-21 22:00 | NUR ---
PT ABLE TO SIT UP ON SIDE OF BED PER SELF. AMB TO BR WITH ROLLING WALKER. TOOK TYLENOL EARLIER FOR GENERALIZED ACHES. EEFECTIVE. PT TO BR. HAD MED SF BROWN WITH LIGHT RED TINT. READY FOR BED. BED ALARM SET. CALL LIGHT IN REACH
[2019-07-22 06:37] VITALS: BP 96/54; PULSE 90; TEMP 98.2
--- NOTE | 2019-07-22 06:40 | NUR ---
Pt complained of "getting breakfast at 0800" yesterday, see mar yesterday, this nurse delivered her tray prior to administering morning meds at 0737
--- NOTE | 2019-07-22 09:17 | NUR ---
Bedside report from ELAINE Mcmahon. Turned pt's bed alarm on, set up for breakfast in bed. Denies pain. Air mattress, glasses in place, call lt in reach. Pt denies N/V/D, chills, no fever. Took pills one at a time with thin liquids, if very happy about adv diet from [facility] soft to regular.
--- NOTE | 2019-07-22 10:13 | NUR ---
Pt showered with OT, nurse removed old dressing from upper spinous process and measured stage II healing ulcer: 0.5 cm x 2.5 cm, partial thickness loss of dermis, wound bed pale and granulating (improving). A few centimeters below this ulcer there continues to be an area of blanchable redness 2 cm around. Applied sliver gauze to ulcer and sacral dressing, dated.
[2019-07-22 15:44] VITALS: BP 102/58; PULSE 93; TEMP 98.3
--- NOTE | 2019-07-22 16:56 | NUR ---
Circle Edger met with patient to follow up before the weekend. Patient states she had a good day today and denies any questions or concerns at this time.
--- NOTE | 2019-07-22 19:30 | NUR ---
PATIENT RESTING IN BED DURING CHANGE OF SHIFT REPORT FROM DAY SHIFT NURSE. BED ALARM ON.
--- NOTE | 2019-07-22 20:12 | NUR ---
Bedside report to ELAINE Hurt. Turned bed alarm on, call lt in reach, Kwadwo davidson, pt denies needs.
--- NOTE | 2019-07-22 22:38 | NUR ---
RESTING IN BED WITH NO COMPLAINTS, BED ALARM ON.
--- NOTE | 2019-07-23 02:48 | NUR ---
SLEEPS WITHOUT WAKING WHEN DOOR TO ROOM IS OPENED. BREATHING NONLABORED AND EVEN. BED ALARM ON.
[2019-07-23 05:22] VITALS: BP 101/55; PULSE 97; TEMP 98.4
--- NOTE | 2019-07-23 09:01 | NUR ---
Patient resting in bed at this time, call light in reach and bed alarm set. Patient will have family member bringing in one of her home meds for osteoperosis this afternoon. Dr. Menjivar was okay with this medication being given.
--- NOTE | 2019-07-23 15:37 | NUR ---
Patient's dropped off patient's home med Alendronate and new order was placed in EMR. Awaiting pharmacy to label the medication. Patient will start this medication tomorrow morning.
[2019-07-23 16:08] VITALS: BP 94/49; PULSE 92; TEMP 98.1
--- NOTE | 2019-07-23 19:04 | NUR ---
PATIENT SITTING UP IN CHAIR DURING CHANGE OF SHIFT REPORT FROM DAY SHIFT NURSE. CHAIR ALARM ON. REQUESTING TO HAVE HS QUESTRAN GIVEN EARLY AND WANTING TYLENOL LATER THIS EVENING FOR SLEEP.
--- NOTE | 2019-07-23 21:04 | NUR ---
APPLIED SACRAL FOAM DRESSING TO BONY COCCYX AREA, OBSERVED AREA RED AND BLANCHABLE, SKIN INTEGRITY INTACT CURRENTLY WHEN DRESSING APPLIED.
--- NOTE | 2019-07-23 23:11 | NUR ---
PATIENT SLEEPING, DOES NOT AWAKEN WHEN ROOM ENTERED BY STAFF NURSE CURRENTLY. BREATHING NONLABORED AND EVEN. BED ALARM ON.
--- NOTE | 2019-07-24 01:44 | NUR ---
SLEEPING WITH NO WAKING UP WHEN ROOM ENTERED BY THIS NURSE. BREATHING NONLABORED AND EVEN. BED ALARM ON.
[2019-07-24 03:42] VITALS: BP 111/65; PULSE 109; TEMP 97.9
--- NOTE | 2019-07-24 06:58 | NUR ---
PATIENT RESTING IN BED WITH BED ALARM ON DURING CHANGE OF SHIFT REPORT GIVEN TO DAY SHIFT NURSE.
--- NOTE | 2019-07-24 13:36 | NUR ---
Patient resting in recliner at this time, call light in reach and alarm set. Patient went for a walk this afternoon from her room around surgical nurses station and back to her room. Patient has been given prn tylenol for generalized aching today that has been helpful. Tolerating diet well today. She required some lifting from staff to get her in a standing position with walker, but took multiple attempts. Will continue to monitor.
--- NOTE | 2019-07-24 15:00 | NUR ---
Patient was given her once a week Alendronate this morning, which was her own patient medication. Patient wore her own knee high rafat hose today. This nurse applied mepilex on the top of both of her feet/ankles to protect from any possible abrasions or deep wrinkles from compression stockings. Patient wears her heel protector on her right heel and she reports that it provides great comfort when walking or using the exercise bike in rehab. Patient stools have been black but no blood was observed today with her stool. Will continue to monitor.
--- NOTE | 2019-07-24 15:32 | NUR ---
Patient visiting with and is currently resting in recliner, call light in reach and chair alarm set.
[2019-07-24 16:25] VITALS: BP 93/50; PULSE 87; TEMP 98
--- NOTE | 2019-07-24 19:30 | NUR ---
PATIENT RESTING IN BED DURING CHANGE OF SHIFT REPORT FROM DAY SHIFT NURSE. BED ALARM ON.
--- NOTE | 2019-07-24 20:20 | NUR ---
PATIENT REQUESTING IF SHE COULD HAVE TYLENOL AFTER 2200 TO HELP WITH SLEEP.
--- NOTE | 2019-07-24 21:52 | NUR ---
DR DUNBAR CALLED FOR PATIENT UPDATE, CONFIRMED PATIENT AFEBRILE WITH NO DIARRHEA AND PATIENT WITH NO COMPLAINTS OR CONCERNS REPORTED TO NURSING STAFF.
--- NOTE | 2019-07-24 22:50 | NUR ---
PATIENT SLEEPING, DOES NOT AWAKEN WHEN ROOM ENTERED BY THIS NURSE. BREATHING NONLABORED AND EVEN. BED ALARM ON.
--- NOTE | 2019-07-25 04:07 | NUR ---
RESTING WITH EYES CLOSED, DOES NOT AWAKEN WITH ROOM ENTERED BY NURSING STAFF, BREATHING NONLABORED AND EVEN. BED ALARM ON.
[2019-07-25 06:20] LABS: MEAN CELL VOLUME 94 fl (80.0-100.0); MEAN CORPUSCULAR HGB CONC 31 g/dl (33.0-37.0); PLATELET COUNT 401 K/mm3 (130-400); RED BLOOD COUNT 2.69 M/mm3 (4.10-5.30); REDCELL DISTRIBUTION WIDTH-CV 19.7 % (11.5-14.5)
[2019-07-25 06:26] LABS: HEMATOCRIT 25.2 % (37.0-47.0); HEMOGLOBIN 7.7 g/dl (12.5-16.0); MEAN CORPUSCULAR HEMOGLOBIN 29 pg (27.0-31.0)
[2019-07-25 06:29] LABS: CALCIUM 7.4 mg/dL (8.4-10.2); CREATININE, serum 0.62 (0.52-1.25); MAGNESIUM 1.7 mg/dL (1.6-2.3); POTASSIUM 3.9 mmol/L (3.4-5.0)
[2019-07-25 06:45] VITALS: BP 103/53; PULSE 95; TEMP 98.7
[2019-07-25 07:12] LABS: BAND 2 % (0-10); EOSINOPHIL 1 % (0-4); LYMPHOCYTE 7 % (20.0-51.0); METAMYELOCYTE 2 % (0-0); NEUTROPHILS 86 % (42.0-75.2); PLATELET ESTIMATE NORMAL (NORMAL)
[2019-07-25 07:14] LABS: HYPOCHROMIA 1+
--- NOTE | 2019-07-25 07:53 | NUR ---
PATIENT RESTING IN BED DURING CHANGE OF SHIFT REPORT GIVEN TO DAY SHIFT NURSE. BED ALARM ON.
[2019-07-25 13:46] LABS: OVA AND PARASITE XXX; TRICHROME STAIN XXX
[2019-07-25 16:13] VITALS: BP 105/60; PULSE 98; TEMP 98
--- NOTE | 2019-07-25 16:50 | NUR ---
ANNETTE met with the patient and her partner, Kwadwo, to follow up after the weekend. The patient states that she is doing well. She had some concerns about her bathroom setup and was interested in doing a home eval before going home for suggestions for her bathroom. ANNETTE to notify IPR Director and will continue to follow.
--- NOTE | 2019-07-25 19:43 | NUR ---
Bedside report from ELAINE Hurt. No acute changes. Changed dressing to upper spine, mepilex and silver gauze to stage II. See new orders for iron d/t low hgb. Bedside report to ELAINE Yao. Pt in chair with alarm on, Kwadwo davidson.
--- NOTE | 2019-07-25 21:03 | NUR ---
Patient rests in bed and significant other in visiting. Montrell hose removed and SCDs applied. Has 2+ edema bilateral feet. Denies pain. States will drink her ensure tomorrow am.
--- NOTE | 2019-07-26 02:25 | NUR ---
Patient rests with eyes closed. Respirations with ease.
[2019-07-26 05:08] VITALS: BP 103/52; PULSE 92; TEMP 97.6
--- NOTE | 2019-07-26 05:15 | NUR ---
Patient states she slept all night. Denies pain. Up min assist to stand but mod assist to stand from toilet. Manages all toileting tasks except nurse helps with pants up. Max assist with legs into bed.
--- NOTE | 2019-07-26 10:39 | NUR ---
Patient tolerated diet well this morning. Patient reporting some generalized pain this morning, but refused any Tylenol. The tip of her right great toe is red and non-blanchable this morning. Patient also reports some pain to that area. Will make sure that when she wears her rafat hose that they are not too tightly placed over her great toe. Patient continues on iron replacement and tolerating well. Will continue to monitor.
--- NOTE | 2019-07-26 14:07 | NUR ---
ANNETTE met with the patient to discuss setting up a family meeting. A family meeting tomorrow with the patient and her daughter, Sarah, was set up for tomorrow at 1345. ANNETTE notified IPR Director. ANNETTE to continue to follow.
[2019-07-26 18:47] VITALS: BP 109/54; PULSE 96; TEMP 98.7
--- NOTE | 2019-07-26 20:30 | NUR ---
Patient assisted from the bathroom to bed. Max assist with legs into bed and heels floated on pillow. Montrell hose removed and SCD's applied. Denies pain. Significant other in visiting. States will drink her ensure in am.
--- NOTE | 2019-07-26 20:43 | NUR ---
Patient had two episodes of percy colored/mir/blood tinged stools today. Notified Dr. Menjivar about request for a CBC for tomorrow to monitor for more blood loss. Dr. Menjivar will be in tomorrow to see patient's and night nurse was given report on the above to communicate to Dr. Menjivar. Patient did not require Tylenol throughout the afternoon today, stating that pain was minimal. Reported off to night nurse.
--- NOTE | 2019-07-26 23:00 | NUR ---
Patient rests with eyes closed. Respirations with ease.
--- NOTE | 2019-07-27 03:00 | NUR ---
Patient has been resting with eyes closed. Respirations with ease.
[2019-07-27 04:55] VITALS: BP 106/51; PULSE 97; TEMP 97.8
[2019-07-27 16:20] VITALS: BP 117/54; PULSE 107; TEMP 98.4
--- NOTE | 2019-07-27 17:30 | NUR ---
SW attended a family meeting with the patient, her daughter (Sarah), and son-in-law. Also present was IPR Director, PT, OT, ST, and RN. IPR Director started by explaining the purpose of the meeting. PT/OT/ST then discussed the patient's progress. Her RN gave a clinical update. IPR Director then discussed the team's tentative discharge date for next Thursday, 08/02, with home health vs outpatient PT/OT depending on the patient's progress and being able to get up on her own from a bed or chair. The patient and her family were in agreeance to this plan. The patient's daughter reports that they are still deciding on if the patient will come and stay with her for awhile after discharge or with the patient's partner. All questions were answered. ANNETTE then followed up with the patient and her partner to present and review to IPR Team Conference Note. SW to continue to follow.
--- NOTE | 2019-07-27 19:48 | NUR ---
Bedside report from ELAINE Yao. Pt with no acute changes today. Changed all dressings after shower. Family and Sig O visited. Enc pt for heel and hand placement for transfers as this is biggest barrier and pt's primary concern before discharge tentatively set for next Thursday. Dr. Menjivar aware of doardo color of and continued blood in stools. Pt marine Iron with meals. Denied pain throughout day. Wore own teds after shower. See new orders for lasix.
--- NOTE | 2019-07-27 19:50 | NUR ---
PATIENT UP IN CHAIR DURING CHANGE OF SHIFT REPORT FROM DAY SHIFT NURSE, CHAIR ALARM ON. PATIENT'S SIGNIFICANT OTHER IN ROOM.
--- NOTE | 2019-07-27 23:21 | NUR ---
DR DUNBAR CALLED FOR STATUS UPDATE ON PATIENT, CONFIRMED THAT PATIENT IS AFEBRILE, NO N/V, NO DIARRHEA, BUT STILL PASSES SOME BLOOD IN STOOL THAT DR HURLEY IS AWARE OF. NO ORDERS GIVEN.
--- NOTE | 2019-07-28 02:18 | NUR ---
RESTING WITH EYES CLOSED, BREATHING NONLABORED AND EVEN, DOES NOT AWAKEN WHEN ROOM ENTERED BY STAFF. BED ALARM ON.
--- NOTE | 2019-07-28 03:42 | NUR ---
PATIENT CONTINUES TO SLEEP, DOES NOT AWAKEN WHEN ROOM ENTERED BY STAFF NURSE, BREATHING NONLABORED/EVEN. BED ALARM ON.
[2019-07-28 05:19] VITALS: BP 109/55; PULSE 96; TEMP 98.7
--- NOTE | 2019-07-28 07:00 | NUR ---
PATIENT IN BED DURING CHANGE OF SHIFT REPORT GIVEN TO DAY SHIFT NURSE. BED ALARM ON.
--- NOTE | 2019-07-28 11:34 | NUR ---
Bedside report from ELAINE Hurt. Pt in chair with alarm on for breakfast, wore SCDs overnight, was toileted at shift change. A&O, pleasant, takes pills one at a time with thin liquids, denies pain. Continent. Applied gauze and secured with paper tape to great toes in areas of redness- see assessment.
[2019-07-28 17:32] VITALS: BP 110/52; PULSE 102; TEMP 98.7
--- NOTE | 2019-07-28 20:07 | NUR ---
Bedside report to ELAINE Mcmahon. Sig O visiting, pt in bed with alarm on, call lt in reach, SCDs to BLE, heels floated.
--- NOTE | 2019-07-28 21:00 | NUR ---
BEDSIDE SHIFT REPORT REC'D FROM ISHAAN Romo RN AT 1900. PT RESTING IN BED. WATCHING NEWS WITH FRIEND. PLEASANT AND COOPERATIVE. SEE MAR FOR TYLENOL GIVEN FOR GENERALIZED ACHINESS. SEE SHIFT ASSESSMENT. TISHA LIGHT IN REACH. BED ALARM SET.
[2019-07-29 05:00] VITALS: BP 129/56; PULSE 99; TEMP 97.9
[2019-07-29 06:20] LABS: BASO % 0.5 % (0.0-2.0); EOS # 0.1 (0.0-0.7); EOS % 1.7 % (0-4.0); GRAN # 6.6 (1.4-6.5); GRAN % 81.4 % (42.2-75.2); LYMPH # 0.5 (1.2-3.4); LYMPH % 6.6 % (20.0-51.0); MEAN CELL VOLUME 93 fl (80.0-100.0); MEAN CORPUSCULAR HGB CONC 31 g/dl (33.0-37.0); MEAN PLATELET VOLUME 8.6 fl (7.4-10.4); MONO # 0.7 (0.1-0.6); MONO % 8.8 % (1.7-9.3); PLATELET COUNT 416 K/mm3 (130-400); REDCELL DISTRIBUTION WIDTH-CV 20.3 % (11.5-14.5)
[2019-07-29 06:33] LABS: HEMATOCRIT 24.2 % (37.0-47.0); HEMOGLOBIN 7.5 g/dl (12.5-16.0); MEAN CORPUSCULAR HEMOGLOBIN 29 pg (27.0-31.0)
[2019-07-29 06:37] LABS: CALCIUM 7.6 mg/dL (8.4-10.2); CREATININE, serum 0.49 (0.52-1.25); MAGNESIUM 1.8 mg/dL (1.6-2.3); POTASSIUM 3.5 mmol/L (3.4-5.0)
--- NOTE | 2019-07-29 11:17 | NUR ---
Bedside report from ELAINE Mcmahon. Pt in bed with air mattress in place, heels floated, SCDs, glasses, call light in reach. A&O, takes pills one at a time with thin liquids, denies pain. Dr. Menjivar aware that pt's stools are percy-colored. Re-check labs Thursday. Discussed with ELENA Rivas concern for pt's pressure ulcers, will send magic cup with suppers.
--- NOTE | 2019-07-29 14:35 | NUR ---
Pt called, c/o pain to both great toes, 01/01. Removed socks and rafat hose to find toe protectors had aggravated pt's pain, removed these and color returned to toes and pain decreased. Waited after therapy to apply cut mepilex foam pads over toes and secured with paper tape. Maulik Burkett arrived.
--- NOTE | 2019-07-29 14:42 | NUR ---
ANNETTE met with the patient and her partner to follow up before the weekend. The patient reports that she is doing okay. She states that she worked hard today. ANNETTE reviewed how the team would re-assess how she is doing on Thursday and SW would follow up with her and her daughter about discharge plan. The patient verbalized understanding. SW to continue to follow.
[2019-07-29 15:22] VITALS: BP 110/59; PULSE 99; TEMP 98.5
--- NOTE | 2019-07-29 17:44 | NUR ---
Family visited this evening, Kwadwo here, too. Bed alarm on, call lt in reach, denies further pain in toes.
--- NOTE | 2019-07-29 19:00 | NUR ---
Report to ELAINE Mcmahon.
--- NOTE | 2019-07-29 23:27 | NUR ---
SHIFT REPORT REC'D BY ISHAAN Martinez RN AT 1900. PT RESTING IN BED. WATHCING NEWS WITH FRIEND. SEE MAR FOR TYLENOL GIVEN FOR GENERAL ACHES. PT RELATES SHE FEELS LIKE SHE IS GETTING STRONGER. NO NEEDS AT THIS TIME. CALL LIGHT IN REACH.
[2019-07-30 04:19] VITALS: BP 105/46; PULSE 67; TEMP 97.8
--- NOTE | 2019-07-30 07:42 | NUR ---
PT STATES NO PAIN. ATE 90% MEAL. FEELING WELL. A/OX3.
--- NOTE | 2019-07-30 10:58 | NUR ---
PT IS BACK IN BED AND WARM. SHE SAID THERAPY WAS GOOD AND SHE WAS TIRED. PT DOES NOT LIKE ICE WATER. NO PAIN
--- NOTE | 2019-07-30 15:00 | NUR ---
PT AMBULATED AROUND THE SURGICAL NURSES STATION X 2. SOMEWHAT SHORT OF BREATH ALL THOUGH SHE STILL CAN SPEAK FULL SENTENCES.
[2019-07-30 16:02] VITALS: BP 100/55; PULSE 107; TEMP 98.5
[2019-07-31 05:25] VITALS: BP 118/54; PULSE 100; TEMP 97.9
--- NOTE | 2019-07-31 06:10 | NUR ---
PT DID NOT HAVE ANY LOOSE STOOLS DURING THE NIGHT. SHE HAD ONE FORMED STOOL AT THE BEGINNING OF THE SHIFT. UP WITH ASSIST OF 1 USING WALKER.
--- NOTE | 2019-07-31 08:14 | NUR ---
Sitting up in bed with eyes open. Denies pain. Dressings to back and bialt toes and heels CDI. Area to left upper thigh almost healed. Patient voices no needs at this time.
--- NOTE | 2019-07-31 09:00 | NUR ---
Patient ambulates to bathroom with standby assist of one and use of walker. Gait steady. Ambulates into ross to standing scale, weight obtained. Returns to room and gets in bed. Required assistance with getting legs and feet into the bed. Patient denies further needs at this time.
--- NOTE | 2019-07-31 12:57 | NUR ---
Sitting up in bed with eyes open. at bedside. Denies needs at this time.
--- NOTE | 2019-07-31 13:30 | NUR ---
Patient ambulates in halls with standby assist of one and use of walker. Returns to room and gets back in bed. Denies needs at this time.
--- NOTE | 2019-07-31 14:50 | NUR ---
Lying in bed with eyes closed. Respirations even and unlabored. No signs or symptoms of discomfort noted. at bedside.
[2019-07-31 15:42] VITALS: BP 103/51; PULSE 104; TEMP 99.6
--- NOTE | 2019-07-31 17:48 | NUR ---
Sitting up in bed with eyes open. in room talking with the patient. Patient denies needs at this time.
--- NOTE | 2019-07-31 19:00 | NUR ---
Received report from Blessing. Patient is awake, sitting on bed. is on the bedside. Call light within reach. On rafat stockings and yellow socks.
--- NOTE | 2019-07-31 20:40 | NUR ---
Assisted patient to the bathroom using gait belt and her walker. She states she feels like she's gonna have a bowel movement but she just urinate. Patient requests her rafat stockings to be removed for tonight and have the yellow socks only. Applied SCD on both lower extremities. Heels float using one pillow.
--- NOTE | 2019-08-01 04:40 | NUR ---
Assisted patient to the bathroom with a walker and gaitbelt. Patient had one, small, soft formed stool and she urinated as well. Denies any pain. Assisted back to bed and put call light within reach.
[2019-08-01 05:25] VITALS: BP 95/55; PULSE 93; TEMP 97.9
[2019-08-01 06:56] LABS: BASO % 0.3 % (0.0-2.0); EOS # 0.1 (0.0-0.7); EOS % 1.5 % (0-4.0); GRAN # 6.8 (1.4-6.5); HEMOGLOBIN 7.6 g/dl (12.5-16.0); LYMPH # 0.6 (1.2-3.4); LYMPH % 7.1 % (20.0-51.0); MEAN CELL VOLUME 97 fl (80.0-100.0); MEAN CORPUSCULAR HEMOGLOBIN 30 pg (27.0-31.0); MEAN CORPUSCULAR HGB CONC 30 g/dl (33.0-37.0); MONO % 11.2 % (1.7-9.3); PLATELET COUNT 482 K/mm3 (130-400); RED BLOOD COUNT 2.57 M/mm3 (4.10-5.30); REDCELL DISTRIBUTION WIDTH-CV 20.4 % (11.5-14.5)
[2019-08-01 07:27] LABS: CALCIUM 7.8 mg/dL (8.4-10.2); CREATININE, serum 0.48 (0.52-1.25); MAGNESIUM 1.7 mg/dL (1.6-2.3); POTASSIUM 3.7 mmol/L (3.4-5.0)
--- NOTE | 2019-08-01 09:17 | NUR ---
Pt awake and alert upon entry, returned from PT this morning, no C/O pain at this time, shift assessments complete, left Pt sitting in bed, call light in reach, bed in lowest position.
--- NOTE | 2019-08-01 11:34 | NUR ---
Rebandaged both great toes, wounds not seeping at this time, applied gauze and paper tape.
--- NOTE | 2019-08-01 13:57 | NUR ---
ANNETTE met with the patient to follow up after the weekend. The patient states that she is doing okay. The patient is to have a home eval with her daughter (Sarah) tomorrow at 1000. The patient states that she now prefers to do outpatient therapy at [facility], due to them having more equipment and a variety of exercises. SW to continue to follow and will schedule the outpatient therapy appointments.
[2019-08-01 16:39] VITALS: BP 117/66; PULSE 101; TEMP 98.8
--- NOTE | 2019-08-01 19:00 | NUR ---
PATIENT RESTING IN BED DURING CHANGE OF SHIFT REPORT FROM DAY SHIFT NURSE. BED ALARM ON.
[2019-08-02 04:51] VITALS: BP 107/55; PULSE 98; TEMP 97.3
--- NOTE | 2019-08-02 07:45 | NUR ---
PATIENT RESTING IN BED DURING CHANGE OF SHIFT REPORT GIVEN TO DAY SHIFT NURSE. BED ALARM ON.
--- NOTE | 2019-08-02 07:53 | NUR ---
Pt assessment complete. Pt is sitting up in bed upon entry just finished with breakfast, she is A/O x4. Her breathing is even and unlabored on RA. Pt reports SOB on exertion. No Pain or N/V. Pt reports having a loose stool last night. Pt struggled getting down large pill, a lot of coughing following administration. Pt denies SOB at rest. No needs at this time. Reports she thinks she will need an antibiotic for her diarrhea when she leaves. Call light within reach.
--- NOTE | 2019-08-02 10:10 | NUR ---
ANNETTE contacted [facility] and secured the patient and outpatient PT appointment on 08/09 at 0900 and an OT appointment on 08/07 at 1030. ANNETTE notified the patient's RN of appointments. ANNETTE will need to fax the patient's discharge to [facility] on [address] at [phone]. ANNETTE to continue to follow.
--- NOTE | 2019-08-02 13:49 | NUR ---
ANNETTE staffed with Magdalene HAMILTON. After the home eval, the patient has chosen to pursue with home health and is comfortable with discharge tomorrow. ANNETTE met with the patient and provided her with Medicare.gov's list of home health agencies that serve [place]. The patient chose [facility]. ANNETTE contacted and faxed a referral to Pradeep at [facility]. Pradeep reports that they are able to accept the patient for services. ANNETTE informed the patient. ANNETTE also presented and explained the IM form to the patient. The patient verbalized understanding, signed, and she was provided a copy. ANNETTE also contact [facility] on [address] and canceled the outpatient appointments. SW to continue to follow.
[2019-08-02 16:12] VITALS: BP 99/49; PULSE 98; TEMP 98.3
--- NOTE | 2019-08-02 17:58 | NUR ---
Pt had home visit today. Otherwise no issues. BM soft formed from what staff visualized. No N/V. Pt in bed at this time. Call light within reach.
--- NOTE | 2019-08-02 19:30 | NUR ---
PATIENT RESTING IN BED DURING CHANGE OF SHIFT REPORT FROM DAY SHIFT NURSE. BED ALARM ON. NO NEEDS REPORTED AT TIME OF REPORT.
--- NOTE | 2019-08-03 00:48 | NUR ---
PATIENT RESTING WITH EYES CLOSED, BREATHING NONLABORED AND EVEN, DOES NOT AWAKEN WHEN ROOM ENTERED. BED ALARM ON.
--- NOTE | 2019-08-03 02:48 | NUR ---
UP TO BATHROOM, WITH NO PROBLEMS, UP WITH SBA WITH PATIENT NEEDING SMALL AMOUNT ASSIST FROM SIT TO STAND. BACK TO BED, NEEDING MOD ASSIST TO GET BOTH LEGS UP INTO BED. BED ALARM ON. DENIES ANY NEEDS.
[2019-08-03 04:19] VITALS: BP 91/34; PULSE 100; TEMP 98.1
--- NOTE | 2019-08-03 07:08 | NUR ---
PATIENT RESTING IN BED DURING CHANGE OF SHIFT REPORT GIVEN TO DAY SHIFT NURSE. BED ALARM ON.
[2019-08-03] MEDS ORDERED: FERROUS SU325 MG/TAB PO (08:49)
[2019-08-03] MEDS ORDERED: TYLENOL 325MG325 MG PO (08:49)
[2019-08-03] MEDS ORDERED: LASIX 20MG TABL20 MG PO (08:52)
--- NOTE | 2019-08-03 09:19 | NUR ---
The patient is to discharge back home today, 08/02, with home health services for PT/OT/fpc [place] [facility] [place]. The patient's daughter, Sarah, also plans to stay with her. ANNETTE attempted to contact Pradeep at [facility]. ANNETTE left him a voicemail and faxed over the discharge orders. No additional needs at this time.
--- NOTE | 2019-08-03 14:36 | NUR ---
Patient is discharging home and is leaving with her daughter and grandaughter, I have reviewed and discussed all discharge orders and instrucitons, instructed to attend all follow up appointments as we have scheudled for her, explained that home health services have been set-up for her to provided [facility]/ PT/ OT and explained that they will contact her at home to schedule meeting time, discussed all discharge meds and new scipts sent to pharmacy for her, SEED BU[employer]ER escorted them out the their vehicle
--- NOTE | 2019-08-04 21:05 | NUR ---
Discharge QIM scores were reviewed by the team. Code of 6 for oral hygiene was determined by team discussion to be the most usual performance for this patient during the assessment period. Code of 4 for toilet hygiene was determined by team discussion to be the most usual performance for this patient during the assessment period. Code of 3 for toilet transfers was determined by team discussion to be the most usual performance for this patient during the assessment period. Code of 5 for bathing was determined by team discussion to be the most usual performance for this patient during the assessment period. Code of 6 for upper body dressing was determined by team discussion to be the most usual performance for this patient during the assessment period. Code of 4 for lower body dressing was determined by team discussion to be the most usual performance for this patient during the assessment period. Code of 5 for putting on/taking off footwear was determined by team discussion to be the most usual performance for this patient during the assessment period. Code of 4 for rolling left to right was determined by team discussion to be the most usual performance for this patient during the assessment period. Code of 4 for sit to lying was determined by team discussion to be the most usual performance for this patient during the assessment period. Code of 6 for lying to sitting side of bed was determined by team discussion to be the most usual performance for this patient during the assessment period. Code of 4 for sit to stand was determined by team discussion to be the most usual performance for this patient during the assessment period. Code of 4 for walking 10 feet was determined by team discussion to be the most usual performance for this patient during the assessment period. Code of 3 for 1 step/curb was determined by team discussion to be the most usual performance for this patient during the assessment period.
== END 2019-08-03 14:40 | disposition home or self-care (01) | DRG 947 ==
PROVIDERS: ADMIT Internal Medicine
DX: R53.81 Other malaise (principal); A41.9 Sepsis, unspecified organism; R65.21 Severe sepsis with septic shock; J18.9 Pneumonia, unspecified organism; I21.A1 Myocardial infarction type 2; E87.1 Hypo-osmolality and hyponatremia; J90 Pleural effusion, not elsewhere classified; G72.9 Myopathy, unspecified; E03.9 Hypothyroidism, unspecified; M81.0 Age-related osteoporosis without current pathological fracture; K22.4 Dyskinesia of esophagus; E83.51 Hypocalcemia; R91.1 Solitary pulmonary nodule; D64.9 Anemia, unspecified; R60.1 Generalized edema; K52.9 Noninfective gastroenteritis and colitis, unspecified; D72.829 Elevated white blood cell count, unspecified; Z79.83 Long term (current) use of bisphosphonates; Z90.710 Acquired absence of both cervix and uterus; Z88.0 Allergy status to penicillin
CPT/HCPCS: 99222-AI; 99231-AI; 99232-AI; 99239

== ENCOUNTER 2019-08-10 21:10 | Inpatient (IN) | payer MEDICARE, OTHER ==
[~2019-08-10] VITALS: Ht 157.5 cm; Wt 70.6 kg
[~2019-08-10 21:10] MED LIST changes: +FERROUS SU325 MG/TAB PO; +LASIX 20MG TABL20 MG PO; +LASIX 40MG TABL40 MG PO; +TYLENOL 325MG325 MG PO; +ZOFRAN 4MG T4 MG/TAB PO
[2019-08-10 22:40] LABS: MEAN CELL VOLUME 95 fl (80.0-100.0); MEAN CORPUSCULAR HGB CONC 30 g/dl (33.0-37.0); MEAN PLATELET VOLUME 8.6 fl (7.4-10.4); PLATELET COUNT 455 K/mm3 (130-400); RED BLOOD COUNT 2.92 M/mm3 (4.10-5.30); REDCELL DISTRIBUTION WIDTH-CV 19.1 % (11.5-14.5)
[2019-08-10 22:47] LABS: HEMATOCRIT 27.7 % (37.0-47.0); HEMOGLOBIN 8.2 g/dl (12.5-16.0); MEAN CORPUSCULAR HEMOGLOBIN 28 pg (27.0-31.0)
[2019-08-10 22:51] LABS: ALBUMIN 2.1 gm/dL (3.5-5.0); BILIRUBIN,TOTAL 0.3 mg/dL (0.0-1.0); CALCIUM 7.7 mg/dL (8.4-10.2); CREATININE, serum 0.61 (0.52-1.25); TOTAL PROTEIN 4.6 gm/dL (6.4-8.2)
[2019-08-10 23:09] LABS: LYMPHOCYTE 8 % (20.0-51.0); NEUTROPHILS 91 % (42.0-75.2)
[2019-08-10 23:10] LABS: PLATELET ESTIMATE NORMAL (NORMAL)
--- NOTE | 2019-08-10 23:32 | NUR ---
Received report from ELAINE Moreira.
--- NOTE | 2019-08-10 23:45 | NUR ---
Patient arrives to IMCU room 16 via ED stretcher with liter bolus of LR infusing as well as ordered Levaquin. Patient is able to pivot to IMCU bed with two-person assist. Patient's initial BP is 89/57 with HR 112, other vitals within normal limits. Patient is alert and oriented x four, with some mild confusion. Bilateral lower extremities exhibit 3+ pitting edema; doppler required to assess pedal and post tibial pulses. Patient's left heel is cracked, the right has a yellow scab/skin flake present. Small pressure ulcers are present on both great toes, which are currently covered with a guaze dressing [facility], according to the daughter, Sarah, who is at the bedside. Patient's coccyx is reddened, although blanchable; there is a reddened, blanchable, spot on the upper portion of spine. Patient reports 6/10 abdominal pain, described as gas discomfort. Warm blankets provided and patient repositioned. Will continue to monitor.
[2019-08-10 23:56] VITALS: BP 89/57; PULSE 112; TEMP 98.6
[2019-08-11] VITALS (263 sets, daily range): BP systolic 80–103; BP diastolic 51–71; PULSE 92–113; TEMP 97.4–98.5; O2SAT 77–100
--- NOTE | 2019-08-11 02:04 | NUR ---
Notified Dr. Chawla of systolic BPs in the low 80s with MAPs below 65. Received orders to bolus 1L of NS now and that levophed may be initiated if needed. Patient to become ICU status should levophed be started. Dr. Chawla aware patient has only peripheral access at this time. Stated levophed could be initiated, but not ran for very long through peripheral site. Also clarified at this time that NS at 75 mL/hr would be maintenance fluid rate, and that orders for LR at 300 mL/hr could be discontinued. Will continue to monitor.
[2019-08-11] MEDS ORDERED: OSCAL 500 TAB500 MG PO (02:41)
[2019-08-11] MEDS ORDERED: FLORINEF ACETA0.1 MG PO (02:49)
--- NOTE | 2019-08-11 03:30 | NUR ---
Patient's BP unresponsive to fluid bolus. Dr. Chawla notified. Received orders to make patient ICU status, consult Dr. Weinberg for central line placement, to initiate levophed, to increase maintenance fluids from 75 mL/hr to 125 mL/hr, and to place a walsh catheter.
--- NOTE | 2019-08-11 03:59 | NUR ---
Notified Dr. Weinberg of surgical consult for central line placement.
--- NOTE | 2019-08-11 04:03 | NUR ---
Patient transferred to ICU room 1. Report given to ELAINE Moncada.
--- NOTE | 2019-08-11 04:36 | NUR ---
at bedside and time out was performed to place central line on patient. At this time patient is stable.
--- NOTE | 2019-08-11 04:55 | NUR ---
central line was successfuly placed by , no complications.
[2019-08-11 06:05] LABS: MEAN CELL VOLUME 94 fl (80.0-100.0); MEAN CORPUSCULAR HGB CONC 30 g/dl (33.0-37.0); MEAN PLATELET VOLUME 8.8 fl (7.4-10.4); PLATELET COUNT 411 K/mm3 (130-400); RED BLOOD COUNT 2.37 M/mm3 (4.10-5.30); REDCELL DISTRIBUTION WIDTH-CV 18.7 % (11.5-14.5)
[2019-08-11 06:14] LABS: CALCIUM 7.2 mg/dL (8.4-10.2); CREATININE, serum 0.48 (0.52-1.25); POTASSIUM 3.7 mmol/L (3.4-5.0)
[2019-08-11 06:15] LABS: HEMATOCRIT 22.2 % (37.0-47.0); HEMOGLOBIN 6.7 g/dl (12.5-16.0); MEAN CORPUSCULAR HEMOGLOBIN 28 pg (27.0-31.0)
--- NOTE | 2019-08-11 07:10 | NUR ---
Bedside report recieved from ELAINE Moncada. Patient participates. Levophed gtt concentration and rate are confirmed. MIVF running as ordered. LSC triple lumen central line with scant drainage to dressing but otherwise uncomplicated. Abdalla to dependent drainage with positive UO. Bed in low and locked position, call light within reach, rails up x3. Care assumed.
--- NOTE | 2019-08-11 07:38 | NUR ---
BEDSIDE REPORT GIVEN TO MARTINEZ DAVIS. IV PUMPS REVIEWED INCLUDING LEVOPHED.
[2019-08-11 07:40] LABS: BAND 29 % (0-10); HYPOCHROMIA 2+; LYMPHOCYTE 2 % (20.0-51.0); NEUTROPHILS 69 % (42.0-75.2); OVALOCYTES 2+; PLATELET ESTIMATE NORMAL (NORMAL); SCHISTOCYTES 1+
[2019-08-11 07:41] LABS: BURR CELLS 1+
--- NOTE | 2019-08-11 07:42 | NUR ---
Dr. Hartley rounds at this time. Orders as entered CPOE.
--- NOTE | 2019-08-11 10:00 | NUR ---
Dr. Shannon rounds at this time. Orders as entered CPOE.
--- NOTE | 2019-08-11 10:20 | NUR ---
Dr. Odonnell notified on consult.
--- NOTE | 2019-08-11 10:23 | NUR ---
Vancomycin Initial Dosing Pharmacy Note Ordering provider: Dylan Chawla MD Indication/duration: Empiric, 7 days LABS: SCr 0.48, CrCl~40, GFR 123 Recommendation: Will give Vancomycin 1.25 gm x1 loading dose, then Vancomycin 1 gm IV q12h. Pharmacy will continue to monitor and check a Vancomycin trough on 08/13/19. Loading dose: 1.25 grams Maintenance dose: 1 gram every 12 hours Trough goal: 15-20 ug/mL
--- NOTE | 2019-08-11 11:30 | NUR ---
Dr. Campuzano notified of consult. States he will be in later.
--- NOTE | 2019-08-11 13:26 | NUR ---
ANNETTE met with the patient to complete initial intake, this is a readmission. The patient lives alone in [place]. The patient has a walker and has been independent with ADLs prior. The patient's PCP is Dr. Deras and patient receives medications from [facility] with no difficulties. The patient states if she can not burr picker meds her family will assist. The patient has advanced directives in the EMR. The first designee is Sarah Anthony and second is Sameera Wray. The patient was hospitalized 07/11/19 to 07/17/19 then transitioned to [facility]. The patient was discharged home on 08/02 from [facility] with [facility]. Per patient she would like to continue to [facility] at discharge. ANNETTE contacted Pradeep with [facility] and ANNETTE will be sending updates as needed. The patient states that Kwadwo picked up medications for her after discharge. The patient stated that she did have a follow-up appointment with Dr. Deras after discharge. The patient did not call Dr. Deras prior to this admission. senior manager creative services will continue to follow to ensure a safe discharge.
[2019-08-11 14:47] LABS: COLLECTION METHOD IN
[2019-08-11 14:53] LABS: MUCOUS Present /lpf; PH 6 (5-8); URINE APPEARANCE Hazy; URINE BACTERIA Rare /hpf; URINE BILIRUBIN Negative (NEGATIVE); URINE BLOOD Negative (NEGATIVE); URINE COLOR Yellow; URINE GLUCOSE Negative (NEGATIVE); URINE KETONE Negative (NEGATIVE); URINE LEUKOCYTE ESTERASE 1+ (NEGATIVE); URINE NITRATE Negative (NEGATIVE); URINE PROTEIN(semi-quant) Negative (NEGATIVE); URINE UROBILINOGEN Negative (NEGATIVE); URINE WBC 20-50 /hpf
[2019-08-11 17:12] LABS: HEMATOCRIT 26.4 % (37.0-47.0); HEMOGLOBIN 8.4 g/dl (12.5-16.0)
--- NOTE | 2019-08-11 17:21 | NUR ---
Dr. Groves rounds at this time. See progress note.
--- NOTE | 2019-08-11 17:49 | NUR ---
Dr. Cornejo calls with results of CT chest/abd/pelvis relaying small bilateral pulmonary emboli, gallstones without thickening of gallbladder noted, and thickening noted of right and left colon indicating colitis.
--- NOTE | 2019-08-11 17:50 | NUR ---
Dr. Hartley notified of report from radiologist and provides TORB for high dose heparin gtt as per protocol. Care ongoing.
--- NOTE | 2019-08-11 17:53 | NUR ---
Dr. Shannon notified of previously noted changes. No new orders recieved.
[2019-08-11 18:57] LABS: PARTIAL THROMBOPLASTIN TIME 38.6 SECONDS (26.0-37.0)
[2019-08-12] VITALS (1291 sets, daily range): BP systolic 86–111; BP diastolic 44–63; PULSE 93–114; TEMP 97–98.4; O2SAT 71–100
--- NOTE | 2019-08-12 00:43 | NUR ---
Dose verified with ELAINE Hunter
[2019-08-12 05:24] LABS: MEAN CELL VOLUME 98 fl (80.0-100.0); MEAN CORPUSCULAR HGB CONC 30 g/dl (33.0-37.0); MEAN PLATELET VOLUME 8.6 fl (7.4-10.4); PLATELET COUNT 333 K/mm3 (130-400); RED BLOOD COUNT 3.02 M/mm3 (4.10-5.30); REDCELL DISTRIBUTION WIDTH-CV 19.2 % (11.5-14.5)
[2019-08-12 05:32] LABS: ALBUMIN 1.7 gm/dL (3.5-5.0); BILIRUBIN,TOTAL 0.2 mg/dL (0.0-1.0); CALCIUM 6.5 mg/dL (8.4-10.2); CREATININE, serum 0.47 (0.52-1.25); POTASSIUM 3.6 mmol/L (3.4-5.0); TOTAL PROTEIN 3.9 gm/dL (6.4-8.2)
[2019-08-12 05:33] LABS: HEMATOCRIT 29.6 % (37.0-47.0); HEMOGLOBIN 8.8 g/dl (12.5-16.0); MEAN CORPUSCULAR HEMOGLOBIN 29 pg (27.0-31.0)
[2019-08-12 05:54] LABS: LYMPHOCYTE 2 % (20.0-51.0); NEUTROPHILS 97 % (42.0-75.2); PLATELET ESTIMATE NORMAL (NORMAL)
[2019-08-12 05:55] LABS: BURR CELLS 2+; TEAR DROP CELLS 1+
[2019-08-12 07:57] LABS: INR 1.2 (0.8-3.0); PROTHROMBIN TIME 14.5 SECONDS (9.7-12.8)
--- NOTE | 2019-08-12 15:12 | NUR ---
PT/OT are recommending post acute rehab. SW attempted to contact the patient's daughter, Sarah (ph# [phone]) to discuss placement, left message.
[2019-08-13] VITALS (594 sets, daily range): BP systolic 96–111; BP diastolic 52–77; PULSE 91–97; TEMP 97.5–98; O2SAT 77–100
[2019-08-13 05:46] LABS: MEAN CORPUSCULAR HGB CONC 31 g/dl (33.0-37.0); MEAN PLATELET VOLUME 8.9 fl (7.4-10.4); PLATELET COUNT 278 K/mm3 (130-400); RED BLOOD COUNT 2.69 M/mm3 (4.10-5.30); REDCELL DISTRIBUTION WIDTH-CV 18.6 % (11.5-14.5)
[2019-08-13 05:52] LABS: HEMATOCRIT 24.5 % (37.0-47.0); HEMOGLOBIN 7.7 g/dl (12.5-16.0); MEAN CELL VOLUME 91 fl (80.0-100.0); MEAN CORPUSCULAR HEMOGLOBIN 29 pg (27.0-31.0)
[2019-08-13 05:58] LABS: ALANINE AMINOTRANSFERASE 25 U/L (4-34); ALBUMIN 1.7 gm/dL (3.5-5.0); ALKALINE PHOSPHATASE 148 U/L (50-136); ANION GAP 4 mmol/L (7-16); AST,SGOT 21 U/L (15-37); BILIRUBIN,TOTAL < 0.1 mg/dL (0.0-1.0); BLOOD UREA NITROGEN 18 mg/dL (7-17); CALCIUM 6.8 mg/dL (8.4-10.2); CARBON DIOXIDE 21 mmol/L (22-30); CHLORIDE 111 mmol/L (98-107); CREATININE, serum 0.45 (0.52-1.25); GLUCOSE 127 mg/dL (74-106); MAGNESIUM 1.7 mg/dL (1.6-2.3); POTASSIUM 3.7 mmol/L (3.4-5.0); SODIUM 136 mmol/L (137-145)
[2019-08-13 06:05] LABS: PROTHROMBIN TIME 11.7 SECONDS (9.7-12.8)
[2019-08-13 06:19] LABS: LYMPHOCYTE 2 % (20.0-51.0); NEUTROPHILS 96 % (42.0-75.2); PLATELET ESTIMATE NORMAL (NORMAL)
[2019-08-13 06:20] LABS: BURR CELLS 3+
--- NOTE | 2019-08-13 07:25 | NUR ---
BEDSIDE REPORT RECEIVED FROM ELAINE ROY
--- NOTE | 2019-08-13 07:30 | NUR ---
BEDSIDE REPORT GIVEN TO ELAINE HAJI. PATIENT WAS AWAKE AND PARTICIPATED.
--- NOTE | 2019-08-13 10:00 | NUR ---
PER KAYLEEN SALES AND MERCHANDISING ASSOCIATE, IT IS OK TO REMOVE CONTACT PRECAUTIONS FROM THIS PATIENT, BUT CONTINUE TO DO HAND HYGIENE WITH SOAP AND WATER WHEN CARING FOR THIS PATIENT
--- NOTE | 2019-08-13 11:03 | NUR ---
REPORT CALLED TO ELAINE STRANGE ON SURGICAL. PATIENT WILL TRANSFER TO ROOM 347.
--- NOTE | 2019-08-13 17:28 | NUR ---
Patient resting in bed. Patient transfered this afternoon to [facility] from [facility]. Patient sat up in chair most of the afternoon & did very well. She denies pain. I spoke with her daughter Rowena over the phone & plan of care was reviewed. Patient nico was dc prior to coming to the floor & she voided, incontience care provided & fresh brief & linens on. Patient having third spacing weeping for her Left arm. gauze on to attempt to keep linens dry. Patient has edema noted. Triple lumen to L.chest. with Ivf per order. Scds ble. She has minimal appetite, but odering food from kitch than interest her, she is concerned about wasting food. Bruno sofia
--- NOTE | 2019-08-13 21:24 | NUR ---
Pt. laying in bed at this time. Pt. is A&OX3, assessment complete. TLC to lt. chest CDI, IV fluids infusing per orders. Pt. denies pain or other needs, call light within reach.
[2019-08-14] VITALS (7 sets, daily range): BP systolic 98–173; BP diastolic 39–85; PULSE 50–95; TEMP 97.4–98.7
[2019-08-14 07:05] LABS: BASO % 0.1 % (0.0-2.0); GRAN # 14.6 (1.4-6.5); GRAN % 92.7 % (42.2-75.2); LYMPH # 0.4 (1.2-3.4); LYMPH % 2.7 % (20.0-51.0); MEAN CELL VOLUME 91 fl (80.0-100.0); MEAN CORPUSCULAR HGB CONC 32 g/dl (33.0-37.0); MEAN PLATELET VOLUME 9.3 fl (7.4-10.4); MONO # 0.5 (0.1-0.6); MONO % 3.4 % (1.7-9.3); PLATELET COUNT 282 K/mm3 (130-400); RED BLOOD COUNT 2.81 M/mm3 (4.10-5.30); REDCELL DISTRIBUTION WIDTH-CV 18.1 % (11.5-14.5)
--- NOTE | 2019-08-14 07:07 | NUR ---
IV TO INT. PATIENT RESTING IN BED THIS MORNING. PATIENT DENIES PAIN. NO NEEDS AT THIS TIME.
[2019-08-14 07:08] LABS: HEMATOCRIT 25.6 % (37.0-47.0); HEMOGLOBIN 8.1 g/dl (12.5-16.0); MEAN CORPUSCULAR HEMOGLOBIN 29 pg (27.0-31.0)
[2019-08-14 07:19] LABS: ALBUMIN 1.9 gm/dL (3.5-5.0); BILIRUBIN,TOTAL 0.1 mg/dL (0.0-1.0); CREATININE, serum 0.35 (0.52-1.25); POTASSIUM 3.8 mmol/L (3.4-5.0); TOTAL PROTEIN 4.4 gm/dL (6.4-8.2)
[2019-08-14 07:22] LABS: PROTHROMBIN TIME 11.1 SECONDS (9.7-12.8)
--- NOTE | 2019-08-14 09:50 | NUR ---
PATIENT ASSISTED TO CHAIR BY MANDREL PULLER AND PT. BUTTOCKS REDDENED. MEPLEX APPLIED. PATIENT TACHYPNIC AND SOB WITH ACTIVITY. HEART MURMUR NOTED. TELE IN PLACE. VSS. LEFT FOREARM WEEPY AND OOZES WITH UTILIZING THE WALKER AND AMBULATING. ABD PAD AND GAUZE DRESSING TO LEFT FOREARM SATURATED WITH SEROUS DRAINAGE. LEFT FOREARM DRESSING REMOVED. ABD PAD, SOFT ROLL AND COBAN APPLIED. MEPLEX TO MID-UPPER SPINE REMOVED. TWO SMALL SKIN TEARS NOTED. SCANT AMOUNTS OF SEROUS DRAINAGE NOTED. NEW MEPLEX DRESSING APPLIED. 2+ PITTING-EDEMA TO BUE AND BLE NOTED. LEFT FOREARM ELEVATED ON PILLOW. PATIENT PLACED ON 2L OF O2 VIA NASAL CANNULA AFTER WORKING WITH PT. CALL LIGHT WITHIN REACH. PATIENT DENIES ANY NEEDS AT THIS TIME.
--- NOTE | 2019-08-14 16:00 | NUR ---
PATIENT LEFT SUBCLAVIAN CENTRAL LINE DRESSING SOILED AND COMING LOOSE. CENTRAL LINE DRESSING REMOVED AND CHANGED VIA STERILE TECHNIQUE. PATIENT TOLERATED WELL. GAUZE DRESSINGS REMOVED FROM BILATERAL GREAT TOES. BLOOD BLISTERS TO EACH GREAT TOE NOTED. SKIN INTACT. GREAT TOES DRESSED WITH GAUZE AND PAPER TAPE. PATIENT DENIES PAIN AT THIS TIME.
--- NOTE | 2019-08-14 17:01 | NUR ---
PATIENT ASSISTED BACK TO BED FROM CHAIR BY VIDEOTAPE RECORDING ENGINEER'S.
--- NOTE | 2019-08-14 18:49 | NUR ---
REPORT GIVEN TO ELAINE OWEN.
--- NOTE | 2019-08-14 20:15 | NUR ---
Pt. sitting up in bed at this time. Pt. assisted to the bathroom with 2 assist, walker and gait belt. Pt. able to have a BM at this time. Pt. assisted back to bed with 2 assist, walker, and gait belt. Pt. repositioned for comfort. Pt. is A&OX3, assessment complete. TLC to lt. chest patent. Dressing to lt. arm CDI. Mepilex to upper spine and coccyx at this time for reddened areas. Skin is intact. Pt. denies pain or other needs, call light within reach.
[2019-08-15] VITALS (8 sets, daily range): BP systolic 89–152; BP diastolic 60–121; PULSE 86–115; TEMP 98–98.6
[2019-08-15 06:25] LABS: MEAN CELL VOLUME 92 fl (80.0-100.0); MEAN CORPUSCULAR HGB CONC 32 g/dl (33.0-37.0); MEAN PLATELET VOLUME 9.3 fl (7.4-10.4); PLATELET COUNT 282 K/mm3 (130-400); RED BLOOD COUNT 2.83 M/mm3 (4.10-5.30); REDCELL DISTRIBUTION WIDTH-CV 18.2 % (11.5-14.5)
[2019-08-15 06:38] LABS: HEMOGLOBIN 8.2 g/dl (12.5-16.0); MEAN CORPUSCULAR HEMOGLOBIN 29 pg (27.0-31.0)
[2019-08-15 06:41] LABS: CALCIUM 7.2 mg/dL (8.4-10.2); CREATININE, serum 0.44 (0.52-1.25); POTASSIUM 3.9 mmol/L (3.4-5.0)
[2019-08-15 07:32] LABS: BAND 8 % (0-10); LYMPHOCYTE 4 % (20.0-51.0); NEUTROPHILS 87 % (42.0-75.2); PLATELET ESTIMATE NORMAL (NORMAL)
--- NOTE | 2019-08-15 08:30 | NUR ---
Patient in bed resting. Alert and oriented x 3, answers questions appropriately. Assessment complete. Generalized edema noted +2 pitting. Gauze and coban dressing to RUE due to weeping noted, is CDI. Patient incontinent of stool, stool is semiformed. Pericare provided. Left subclavian line without complications. SCDs to BLE. Denies further needs at this time.
--- NOTE | 2019-08-15 11:20 | NUR ---
Patient sitting up in recliner
--- NOTE | 2019-08-15 12:53 | NUR ---
First visit from the dietitian helper. prayed with patient. No other needs right now.
--- NOTE | 2019-08-15 13:37 | NUR ---
Contacted Dr. Shannon, Tele called, patient HR at 130. Consulted cardologist. Disability Hearing Officer notified.
--- NOTE | 2019-08-15 13:57 | NUR ---
Per Dr. Shannon, now dose of metoprolol given.
--- NOTE | 2019-08-15 15:02 | NUR ---
Cemetery Counselor attended clinical rounds with the team and patient will likely be ready for discharge tomorrow. ANNETTE followed up with patient who states she still prefers to go to [facility]. ANNETTE contacted Annie at [facility] and Barry at [facility] then faxed updates. ANNETTE spoke with Annie at [facility] who advised they can accept referral. ANNETTE contacted patient's daughter, Sarah who is in agreeance with patient discharge to [facility] tomorrow. ANNETTE also updated patient who is also in agreeance. ANNETTE contacted Barry to notify him that first preference accepted and to thank him for screening referral. Patient to discharge to [facility], potentially tomorrow.
--- NOTE | 2019-08-15 18:48 | NUR ---
Patient has done well throughout the day. Has been up to recliner throughout the day. Takes medications whole with pudding. LUE continues weeping, dressing in place. Denies further needs at this time. Will report off to retail shift leader.
--- NOTE | 2019-08-15 21:29 | NUR ---
Pt doing ok. alert and oriented. was hypotensive but asymmpomatic. Normal sinus on tele. other vss. heart and lung sounds normal. bowel sounds aud all quad. voiding to bedside commode, x2 max assist with transfers. pedal pulses present. generalized 2-3+ edema. weeping to BUE. mepilex dressing to upper back on spine due to reddened area from kypohsis. mepilex on coccyx due to irritated reddned area. pt does not c/o pain but states she is SOB, on 3L of O2 with sats between 98-100. Pt resting in bed. Denies needs. Call light within reach, will continue to monitor
[2019-08-16] VITALS (7 sets, daily range): BP systolic 90–124; BP diastolic 52–81; PULSE 90–110; TEMP 97.4–98.3
--- NOTE | 2019-08-16 05:13 | NUR ---
Pt has done ok throughought night. Used bedpan x1 to void. No complaints. Still weeping to BUE. Denies SOB right now but did have SOB earlier this shift. Denies needs, call light within reach, will continue to monitor
--- NOTE | 2019-08-16 09:30 | NUR ---
Patient alert and oriented, answers questions appropriately. See assessment. Heart tones strong and even, pulses palpable. Lungs decreased in bases, clear in upper lobes. Oxygen at 2l/nc. BUE/BLE edema noted. No c/o at this time.
--- NOTE | 2019-08-16 09:42 | NUR ---
Dr Shannon here to see patient.
--- NOTE | 2019-08-16 10:18 | NUR ---
Sweet Dough Mixer attended clinical rounds with the team. Patient reports she is feeling weak. Hospitalist addressed patient's low blood pressure and advised she will not discharge today. SW contacted Annie at [facility] and faxed updates. SW contacted patient's daughter Sarah and provided update. Sarah reports her family was thinking patient was going to an Inpatient Rehab setting at [facility]. SW spoke with Sarah about the differences between IPR and SNF. SW reviewed PT/OT's recommendations with Sarah. At this time, Sarah is still agreeable to SNF placement. SW to continue to follow.
--- NOTE | 2019-08-16 20:30 | NUR ---
Pt. laying in bed at this time. Pt. is A&OX3, assessment complete. TLC to LT. chest patent. Pt. pain to her lt. back. Will give tylenol and repositioned pt. for comfort. Pt. denies further needs, call light within reach.
[2019-08-17] VITALS (10 sets, daily range): BP systolic 86–137; BP diastolic 43–94; PULSE 66–107; TEMP 97.1–98.4
[2019-08-17 06:53] LABS: MEAN CELL VOLUME 94 fl (80.0-100.0); MEAN CORPUSCULAR HGB CONC 30 g/dl (33.0-37.0); MEAN PLATELET VOLUME 10.2 fl (7.4-10.4); PLATELET COUNT 238 K/mm3 (130-400); RED BLOOD COUNT 2.26 M/mm3 (4.10-5.30); REDCELL DISTRIBUTION WIDTH-CV 17.9 % (11.5-14.5)
[2019-08-17 06:57] LABS: CALCIUM 7.6 mg/dL (8.4-10.2); CREATININE, serum 0.42 (0.52-1.25); POTASSIUM 3.9 mmol/L (3.4-5.0)
[2019-08-17 06:59] LABS: HEMATOCRIT 21.2 % (37.0-47.0); HEMOGLOBIN 6.4 g/dl (12.5-16.0); MEAN CORPUSCULAR HEMOGLOBIN 28 pg (27.0-31.0)
--- NOTE | 2019-08-17 07:29 | NUR ---
Spoke with Blessing Bojorquez. Critacal H&H discussed. Orders obtained.
[2019-08-17 08:23] LABS: BAND 5 % (0-10); LYMPHOCYTE 9 % (20.0-51.0); METAMYELOCYTE 1 % (0-0); MYELOCYTE 1 % (0-0); NEUTROPHILS 83 % (42.0-75.2); PLATELET ESTIMATE NORMAL (NORMAL)
--- NOTE | 2019-08-17 11:33 | NUR ---
Patient resting in bed. Blood transfusion per orders & protocol. Patient tolerating without signs or symptoms of transfusion reaction. Vitals improving since starting the blood. She continues to have dyspnea. O2 sats stable on O2. Extensive hygiene provided. Full bed bath & oral care. Fresh linens. Patient continues to have edema/third spacing & weeping. Triple lumen to Left chest, new sterlie dressing applied. Her skin is at risk for breakdown. Heel protectors on. Dressings on great toes removed. Lotions applied to skin. Allyven foam to spine & coccyx for reddness. Will encourage activity today. Hospitlist team rounded, plan of care reviewed.
--- NOTE | 2019-08-17 14:29 | NUR ---
Straightening Roll Operator attended clinical rounds with the team and patient will not discharge to [facility] today. SW contacted patient's daughter Sarah to provide update. ANNETTE contacted Annie at [facility] and faxed updates. ANNETTE spoke with Hospitalist who advised he will be calling patient's daughter today to discuss goals of care. SW to continue to follow.
[2019-08-17 16:57] LABS: HEMATOCRIT 25.6 % (37.0-47.0); HEMOGLOBIN 7.9 g/dl (12.5-16.0)
--- NOTE | 2019-08-17 17:52 | NUR ---
Patient sitting up in chair. She continues to do better since transfusion. Patient did have a incontinent stool, hospitalist made aware. Occult stool sent to lab & positive results reported to hospitalsit. H&H recheck improved at 7.9. Patient continues to have dysnpea. Triple lumen Int. She ordered her own dinner, tolerated without nausea.
--- NOTE | 2019-08-17 19:15 | NUR ---
Patient assisted back to bed. Patient had another loose stool, with blood present. Pericare provided with new brief.She tolerated dinner. She spoke with her family on the phone.
--- NOTE | 2019-08-17 21:00 | NUR ---
Received report from ELAINE Redd. Pt was lying in bed she had no complaints at this time. Pt appeared to have dyspnea during resting. She has pitting edema, on her upper and lower extremities as well as her truck. Pt has red scabs on her arms that appears to come from the seeping of her skin possibly. Her skin on both legs were dry and flaky, lotion was applied to both legs at this time. Pt has a red area and there is a dressing applied at this time. Pt also has a red area on her coccyx, there is a dressing that is applied at this time. She has heel protectors on at this time and both of her heels has a small amount of redness. She has a small scab on her left great toe. She stated that she is not having pain at this time. Pt does have her call light within reach and her bed is in lowest position.
[2019-08-18] VITALS (11 sets, daily range): BP systolic 92–108; BP diastolic 48–62; PULSE 42–100; TEMP 97.7–98.2
--- NOTE | 2019-08-18 04:48 | NUR ---
Pt called out at this time requested something for pain. Pt stated that her arms were hurting her. Pt was given a pain medicaton at this time. Pt stated that her pain was at a 5 out of 10 on the numeric scale. She was repositioned at this time and there were new pads put under her arms to help with the seeping. Pt has her call light within reach and her bed is in lowest position
[2019-08-18 06:33] LABS: MEAN CELL VOLUME 91 fl (80.0-100.0); MEAN CORPUSCULAR HGB CONC 31 g/dl (33.0-37.0); MEAN PLATELET VOLUME 10.5 fl (7.4-10.4); PLATELET COUNT 215 K/mm3 (130-400); RED BLOOD COUNT 2.45 M/mm3 (4.10-5.30); REDCELL DISTRIBUTION WIDTH-CV 19.8 % (11.5-14.5)
[2019-08-18 06:51] LABS: CALCIUM 7.6 mg/dL (8.4-10.2); CREATININE, serum 0.39 (0.52-1.25)
[2019-08-18 06:56] LABS: HEMATOCRIT 22.3 % (37.0-47.0); HEMOGLOBIN 6.8 g/dl (12.5-16.0); MEAN CORPUSCULAR HEMOGLOBIN 28 pg (27.0-31.0)
--- NOTE | 2019-08-18 07:09 | NUR ---
Reported off to ELAINE Hernandez. Lesia from lab called and reported a critical lab of a Hgb 6.8. This lab was reported off to Mary at this time. Pt is currently lying in bed sleeping at this time. Call light is within reach
[2019-08-18 07:20] LABS: BAND 2 % (0-10); LYMPHOCYTE 3 % (20.0-51.0); MYELOCYTE 2 % (0-0); NEUTROPHILS 89 % (42.0-75.2)
[2019-08-18 07:21] LABS: HYPOCHROMIA 3+; PLATELET ESTIMATE NORMAL (NORMAL)
[2019-08-18 08:38] LABS: PATHOLOGY DIFF REVIEW OK
--- NOTE | 2019-08-18 11:28 | NUR ---
Blood transfusion initiated. Transfusion protocol followed. Discussed any reaction symptons that may occur with patient. Patient verbalized understanding. Rated started at 60ml/hr. Will stay with patient for first 15 mins of transfusion. No other changes at this time.
--- NOTE | 2019-08-18 11:40 | NUR ---
Patient is tolerating transfusion well. Denies any symptoms of a reaction. Vital signs are stable. Increase rate to 125ml/hr. No other changes at this time. Patient continues to rest comfortably. This nurse stayed at bedside for the first 15mins.
--- NOTE | 2019-08-18 12:44 | NUR ---
Patient continues to do well with transfusion. Vital signs stable. Tylenol given for hip pain. No other changes at this time. She refused lunch, she stated she is not hungry. Call light within reach.
--- NOTE | 2019-08-18 14:00 | NUR ---
City Treasurer spoke with Hospitalist and patient will not discharge today. Hospitalist advised he discussed DNR order with patient's daughter, Sarah yesterday. SW contacted Sarah who advised the family would still like for patient to discharge to [facility]. ANNETTE faxed updates to Annie at [facility]. SW to continue to follow.
--- NOTE | 2019-08-18 14:00 | NUR ---
Blood transfusion is completed. Patient tolerated the transfusion well. Patient is achy this afternoon. No complaints of nausea. She is wanting to nap for a few hours. No other changes at this time. Call light within reach.
[2019-08-18 18:30] LABS: HEMATOCRIT 28.1 % (37.0-47.0); HEMOGLOBIN 8.8 g/dl (12.5-16.0)
--- NOTE | 2019-08-18 18:45 | NUR ---
Patient has been doing well today. She had 3 large loose stools. We have been turning her every 1-2 hours. Tylenol and ultram given this afternoon. No other changes at this time. Call light within reach.
--- NOTE | 2019-08-18 21:00 | NUR ---
PT IN BED. IS ALERT AND ORIENTED. REPOSITIONED AFTER USING BEDPAN TO VOID. HAS WEEPING OF BOTH ARMS, SWELLING NOTED WITH SCRATCHES TO LEFT ARM PRESENT. HAS SIGNIFICANT EDEMA FROM TRUNK TO FEET, 3-4+ PITTING. LABIA SWOLLEN WELL. HAS MEPILEX DRSG TO UPPER BACK AND COCCYX. LEFT CENTRAL LINE INTACT, ALL 3 LUMENS WITH GOOD BLOOD RETURN AND FLUSHED. HEEL PROTECTORS ON BOTH FEET. DENIES PAIN AT THIS TIME.
--- NOTE | 2019-08-19 03:07 | NUR ---
Assisted with bedpan for voiding. Able to help turn side to side. Does get short of breath with activity.
[2019-08-19 04:27] VITALS: BP 105/49; PULSE 102; TEMP 97.7
[2019-08-19 06:57] LABS: MEAN CELL VOLUME 91 fl (80.0-100.0); MEAN CORPUSCULAR HGB CONC 31 g/dl (33.0-37.0); MEAN PLATELET VOLUME 10.5 fl (7.4-10.4); PLATELET COUNT 241 K/mm3 (130-400); RED BLOOD COUNT 2.92 M/mm3 (4.10-5.30)
[2019-08-19 07:03] LABS: HEMATOCRIT 26.7 % (37.0-47.0); HEMOGLOBIN 8.3 g/dl (12.5-16.0); MEAN CORPUSCULAR HEMOGLOBIN 28 pg (27.0-31.0)
[2019-08-19 07:08] LABS: ALANINE AMINOTRANSFERASE 51 U/L (4-34); ALBUMIN 1.9 gm/dL (3.5-5.0); ALKALINE PHOSPHATASE 300 U/L (50-136); ANION GAP 1 mmol/L (7-16); AST,SGOT 40 U/L (15-37); BILIRUBIN,TOTAL < 0.1 mg/dL (0.0-1.0); BLOOD UREA NITROGEN 16 mg/dL (7-17); CALCIUM 7.9 mg/dL (8.4-10.2); CARBON DIOXIDE 31 mmol/L (22-30); CHLORIDE 108 mmol/L (98-107); CREATININE, serum 0.32 (0.52-1.25); GLUCOSE 95 mg/dL (74-106); POTASSIUM 3.9 mmol/L (3.4-5.0); SODIUM 141 mmol/L (137-145); TOTAL PROTEIN 4.3 gm/dL (6.4-8.2)
[2019-08-19 07:58] VITALS: BP 97/51; PULSE 105; TEMP 98.1
[2019-08-19 10:01] LABS: BAND 2 % (0-10); LYMPHOCYTE 6 % (20.0-51.0); METAMYELOCYTE 4 % (0-0); NEUTROPHILS 85 % (42.0-75.2); PLATELET ESTIMATE NORMAL (NORMAL)
[2019-08-19 10:05] LABS: HYPOCHROMIA 1+
[2019-08-19 12:50] VITALS: BP 114/62; PULSE 110; TEMP 98.5
--- NOTE | 2019-08-19 13:30 | NUR ---
Called daughter Sarah at [phone] and spoke with her concerning the pt's and family's desire for goals of care. It was discussed concerning continuing care or transitioning to Hospice. The family had discussed hospice and felt if she were there one of them could then be with her which they all preferred including the patient. Sarah wanted to call her mom and speak with her about Hospice and then she would call Brigitte BRYANT to let her know their decision. Sarah expressed the desire for her mom to be comfortable and with family as much as possible. Will notify ANNETTE Briggs of discussion as well as Dr. Shannon.
[2019-08-19 16:00] VITALS: BP 109/56; PULSE 106; TEMP 98.3
--- NOTE | 2019-08-19 16:32 | NUR ---
Monument Letterer notified by ELAINE Lopez-CM that she spoke with Alexandra, patient's daughter who advised she would like to explore hospice for patient. ANNETTE contacted Hospitalist who ordered palliative consult. ANNETTE spoke with patient with patient's daughter, Sarah on speaker phone. Patient states she is tired of fighting and agrees that she is not getting better despite extended time in the hospital and at Inpatient Rehab. SW spoke with Sarah about hospice options including hospice at home, hospice at a shelter, and the [facility]. Patient states she does not feel she can go home and wants to go to the [facility]. Jimzora is supportive of this decision. ANNETTE updated Hospitalist who spoke with patient and Sarah then put in comfort care orders. ANNETTE faxed referral to Alan at [facility] and patient is accepted. Plan is for patient to discharge tomorrow with arrival at [facility] scheduled for 1300. ANNETTE contacted [facility] to establish leaf size picker time for 1230. ANNETTE collaborated with ELAINE Hernandez who advised EMS transport is appropriate for patient. ANNETTE placed EMS forms on patient's chart for signature tomorrow. ANNETTE provided update on discharge date and time along with transportation arrangements to patient and Jimzora who are both in agreeance. ANNETTE advised Sarah that Alan intends to call her this afternoon to discuss any questions. ANNETTE provided update to Hospitalist and Mary HENRY on discharge date and time. Hospitalist in agreeance. SW to follow up tomorrow to fax discharge orders.
--- NOTE | 2019-08-19 18:30 | NUR ---
Patient has been doing well today. Minimal complaints of pain. The edema to her legs and arms is better today. She has less drainage from her arms. She sat up in the chair most the day. She only had one small bowel movement this mornings. She has been eating well most the day. No complaints of nausea. Pain controlled with tylenol. Dr Henry was planning to do and EGD tomorrow. The patient and her family dedicded to place her on hospice care. Patient stated she couldn't handle another procedure. She should be going to the hospice house tomorrow. No other changes at this time. Call light within reach. Patient is resitng comfortably in bed.
--- NOTE | 2019-08-19 18:30 | NUR ---
Patient has been resting comfortably today between tests. Minimal complaints of pain. No complaints of nausea. She decided not to eat regular food for supper. She has some soft and liquid foods. She stated eating food causes her to have some soreness and cramping in her abdomen. No other changes at this time. Call light within reach.
--- NOTE | 2019-08-20 00:05 | NUR ---
Repositioned to left side. Has smear of black tarry stool. Remains comfort care. Denies pain. Has significant anasarca.
--- NOTE | 2019-08-20 03:00 | NUR ---
Uses bedpan without problem. Denies pain at this time.
--- NOTE | 2019-08-20 08:45 | NUR ---
Patient up with two assist to pivot to bedside commode. Patient had an incontinent stool in her brief when she got up to the commode, but was contient of urine and stool on the bedside commode. Pressure sore to coccyx is dressed with mepilex. Patient c/o back pain upon return to bed and requested PRN tylenol, will administer per order. Patient denies further needs at this time, call light within reach.
--- NOTE | 2019-08-20 12:35 | NUR ---
EMS arrives to transport patient. All patient belongings gathered. Patient denies pain or needs. Attempted to call report to recieving facility twice, left message, will attempt again later.
--- NOTE | 2019-08-20 12:51 | NUR ---
SW received word that patient would be discharging today and EMS would pick her up at 1230. ANNETTE coordinated with charge nurse, and patients nurse to ensure that forms were completed and patient was ready for discharge by 1230. ANNETTE contacted patient's daughter Sarah to inform her that pt was enroute. ANNETTE did look for medications to fax to [facility], and noticed that all medications were discontinued except over the counter Tylenol.ANNETTE confirmed this with patient's nurse.
== END 2019-08-20 12:35 | disposition hospice, inpatient (51) | DRG 871 ==
LOC: COL.ER 21:10 → ICU 22:56 → IMCU 22:56 → SURG 22:56 → ICU 08-11 03:43 → SURG 08-13 11:52
PROVIDERS: Family Medicine; Internal Medicine Pulmonary Disease; Nurse Practitioner Family; Physician Assistant; ADMIT Hospitalist
PROC: 05H633Z Insertion of Infusion Device into Left Subclavian Vein, Percutaneous Approach (ICD-10-PCS; principal; 2019-08-11)
DX: A41.9 Sepsis, unspecified organism (principal); R65.21 Severe sepsis with septic shock; I26.99 Other pulmonary embolism without acute cor pulmonale; J96.01 Acute respiratory failure with hypoxia; E87.2 Acidosis; D62 Acute posthemorrhagic anemia; K55.9 Vascular disorder of intestine, unspecified; I47.1 Supraventricular tachycardia; K92.2 Gastrointestinal hemorrhage, unspecified; E03.9 Hypothyroidism, unspecified; M81.0 Age-related osteoporosis without current pathological fracture; I25.2 Old myocardial infarction; R91.1 Solitary pulmonary nodule; D50.0 Iron deficiency anemia secondary to blood loss (chronic); R14.0 Abdominal distension (gaseous); Z90.721 Acquired absence of ovaries, unilateral; Z90.710 Acquired absence of both cervix and uterus; Z90.89 Acquired absence of other organs
CPT/HCPCS: 99223-AI; 99232-AI; 99233-AI; 99239; A4216; A9284; J1644; J1650; J1720; J1956; J2185; J3370; J3475; J7030; J7050; J7060; J7120; P9016; Q9967